=== PATIENT | male | born 1970 | race Caucasian/White ===

== ENCOUNTER 2023-06-17 15:08 | Outpatient (AMB) | payer OTHER, SELFPAY ==
--- NOTE | 2023-06-17 15:11 | MHC.OFFVIS ---
Intake Intake Visit Reasons: Kidney Stones Intake Note: New Patient Present for Establish care for Kidney stones Antibiotic Allergies: None Blood Thinners: None Pharmacy: Patient states that he has never had kidney stones prior of this. Patient states he has current back pain due to past fracture, but does have on and off pain unsure if pain is from Stone. He had went to ER for pain and was informed that they couldnt blast stone. Allergies bee sting Allergy (Mild, Uncoded 06/17/23 15:49) Unknown Medication List - Last Reconciled 06/17/23 by JOHN Capps bupropion HCl 150 mg PO QAM folic acid 1 mg PO DAILY hydroxyzine HCl 10 mg PO TID ypxfbkfr-zdzu-FJ-calcium-mins 9 mg iron-400 mcg (Therapeutic-M) 1 tab PO DAILY pyridoxine (vitamin B6) 50 mg PO DAILY thiamine HCl (vitamin B1) 100 mg PO DAILY HPI HPI Comments History of Present Illness Details Carley is a very pleasant 52-year-old male patient of Dr. Lopez. He has a past medical history of anxiety, depression, and alcoholism. He presents to the office today as a new patient for nephrolithiasis. In discussion with the patient today he reports having had an abdominal ultrasound due to his longstanding history of alcoholism and cirrhosis at which time he was noted to have a left-sided kidney stone. Imaging results reviewed with the patient today. Right kidney with no hydronephrosis, stone, and or masses noted. Left kidney with 10 mm nonobstructing stone in the lower pole. No hydronephrosis or mass seen. Patient reports to be having intermittent left-sided flank pain for many months now. However, he denies any bothersome urinary issues or concerns at this time. He denies urinary urgency, urinary frequency, incontinence, nocturia, hematuria, dysuria, foul smelling urine, changes to urinary stream, fever, and or chills. He is happy with his current voiding parameters. In office urinalysis results reviewed with the patient today. Discussed at length surveillance monitoring verses left-sided ESWL. Discussed potential causes of nephrolithiasis. Will obtain KUB for further assessment evaluation. Discussed at length risks and benefits of surveillance monitoring verses ESWL. All questions were answered. [facility] Medical History Hypoxia Shortness of breath Alcohol use Depression Anxiety Social History (Updated 06/17/23 @ 15:14 by SRUTHI Staples) Alcohol intake: current Alcohol intake frequency: a few times a week Alcohol type: hard liquor Review of Systems Const Reports as per HPI Eyes Reports no additional complaints ENT Reports no additional complaints Card Reports no additional complaints Resp Reports no additional complaints GI Reports as per HPI Reports as per HPI Musc Reports no additional complaints Neuro Reports no additional complaints Psych Reports as per HPI Abdi/Lymph Reports no additional complaints Aller/Immun Reports no additional complaints Physical Exam Const General: cooperative, healthy appearing, comfortable, no acute distress, well developed, alert and awake Orientation/consciousness: patient oriented x3 Limitations: no limitations HEENT Head: Yes normal to inspection, Yes normocephalic and Yes atraumatic Ears: hearing grossly normal bilaterally Eyes General: appearance normal, both eyes and all related structures Neck Neck: Yes normal visual inspection and Yes trachea midline Chest Chest palpation & inspection: normal inspection of the chest Resp Effort & Inspection: normal respiratory effort and able to speak in complete sentences Cardio Rate: regular rate GI Inspection: Yes normal to inspection General: Yes no CVA tenderness Back/Spine/Pelvis Back: no CVA tenderness Skin General skin exam: no rashes or lesions noted Neuro General: patient oriented x3 Extrem General: Yes normal to inspection Psych Appearance: grossly normal and well kempt Mental Status: mental status grossly normal Speech and movement: Normal speech and movement present and Clear speech present Affect: normal affect Attitude: cooperative Thought process: Normal thought process present Thought content: Normal thought content present Insight: Fair insight present (Psych) Judgement: Fair judgement present (Psych) Results AMB Urinalysis, Automated UA Leukoctes 0 Bren/uL Last Edit by SRUTHI Staples on 06/17/23 15:25 UA Nitrite Negative Last Edit by SRUTHI Staples on 06/17/23 15:25 UA Urobilinogen 0.2 mg/dL Last Edit by SRUTHI Staples on 06/17/23 15:25 UA Protein 15 mg/dL Last Edit by SRUTHI Staples on 06/17/23 15:25 UA pH 7.0 Last Edit by SRUTHI Staplse on 06/17/23 15:25 UA Blood 0 Eren/uL Last Edit by Adela Horowitz, RMA on 06/17/23 15:25 UA Specific [place] 1.010 Last Edit by Adela Horowitz, RMA on 06/17/23 15:25 UA Ketone Negative Last Edit by Adeladanielle Horowitz, RMA on 06/17/23 15:25 UA Bilirubin 0 mg/dL Last Edit by Adela Horowitz, RMA on 06/17/23 15:25 UA Glucose 0 mg/dL Last Edit by Adela Horowitz, RMA on 06/17/23 15:25 Results Reviewed Results Reviewed: Laboratory Last Values Urine pH (Auto) 7.0 06/17/23 15:15 Specific [place] (Auto) 1.010 06/17/23 15:15 Urine Protein (Auto) 15 mg/dL 06/17/23 15:15 Glucose (UA)(Auto) 0 mg/dL 06/17/23 15:15 Urine Ketones (Auto) Negative 06/17/23 15:15 Urine Blood (Auto) 0 Eren/uL 06/17/23 15:15 Urine Nitrite (Auto) Negative 06/17/23 15:15 Urine Bilirubin (Auto) 0 mg/dL 06/17/23 15:15 Urine Urobilinogen (Auto) 0.2 mg/dL 06/17/23 15:15 Leukocyte Esterase (Auto) 0 Bren/uL 06/17/23 15:15 Assessment & Plan Assessment & Plan (1) Nephrolithiasis: Code(s): N20.0 - Calculus of kidney (2) Flank pain: Code(s): R10.9 - Unspecified abdominal pain Plan: Plan Extracorporeal Shock Wave Lithotripsy We discussed the nature of the decision and reasonable alternatives for performing the above surgery. Interventions include chemical dissolution, ESWL, ureteroscopy with laser lithotripsy and stent placement, PCNL. ? Options such as medical therapy were discussed. The relative uncertainties and benefits related to each alternate procedure were adequately discussed. General surgical risks including, but not limited to, pain, bleeding, infection, myocardial infarction, pulmonary embolus, deep vein thrombosis and cerebrovascular accident which may result in further hospitalization were discussed.? Full disclosure of the procedure as well as all major risks, benefits and complications were discussed including but not limited to risks of bleeding, injury to the kidney with hematoma or mack-hematoma, failure to fragments stone, potential for ureteric obstruction from stone passage and need for secondary procedures.? There is a small long-term risk of hypertension and a question bonnie of diabetes.? Success rate of fragmentation and passage is approximately 70- 75%.? This is compared to the risks and benefits for ureteroscopy which has a higher success rate but is a more invasive procedure. The success rate of the procedure was discussed. Success of the procedure in the short-term does not necessarily guarantee that long-term success will be maintained. Suitable follow up will need to be maintained. The patient showed understanding of the discussion as well as the typical recovery time, and the outpatient nature of this procedure. Opportunity was given for questions. Repeat-back protocol used to confirm understanding. They wish to proceed with left ESWL Plan In office urinalysis results reviewed with the patient today; as noted above. Recent abdominal ultrasound results reviewed with the patient today; as noted above. Will obtain KUB for further assessment evaluation. Discussed surveillance monitoring verses left-sided ESWL. Educated, encouraged, and instructed on the importance of drinking plenty of water daily. Discussed at length potential causes of nephrolithiasis. Discussed risks and benefits of surveillance monitoring verses left-sided ESWL. Will schedule for left-sided ESWL as discussed. Follow-up per Dr. Joy's orders status post ESWL; or sooner with any issues, concerns, and or questions. Orders: Orders AMB Urinalysis Automated Today Z13.9 - Encounter for screening, unspecified XR KUB Today N20.0 - Calculus of kidney Patient Instructions: The patient had an opportunity to ask questions regarding the treatment plan. All questions were answered. Physical exam, labs, and imaging were discussed and reviewed in detail. As well as risks, benefits, and discussion of treatment choices. No major barriers to understanding were identified. The patient expressed understanding and agreement with the above treatment plan. The patient was made aware they should contact our office by phone for worsening of their current condition, the appearance of new symptoms, or with any questions or concerns. Compliance is encouraged with any medications and follow up testing that is ordered. It is a privilege to be allowed the opportunity to participate in? your urological care.? Again, if you have any questions or concerns If you have any questions or concerns please do not hesitate to contact me. The office is [phone]. This note is constructed using voice recognition software. While every effort has been made to ensure accuracy gas engine operator errors may have been included. Yours sincerely, REJI Capps-TANNER Coding Level of Care Code New Pt Level 4 (14662) Diagnoses Nephrolithiasis N20.0 Flank pain R10.9
== END 2023-06-17 15:48 | disposition home or self-care (01) ==
PROVIDERS: Visit Provider Nurse Practitioner Family
DX: N20.0 Calculus of kidney (principal); R10.9 Unspecified abdominal pain; Z13.9 Encounter for screening, unspecified
CPT/HCPCS: 99204

== ENCOUNTER → 2023-06-17 15:08 | Outpatient (BNVA) | payer OTHER, SELFPAY | PROVIDERS: Visit Provider Nurse Practitioner Family | DX: N20.0 Calculus of kidney (principal); F10.20 Alcohol dependence, uncomplicated | CPT/HCPCS: 81003 ==

== ENCOUNTER 2023-06-29 09:39 | Day surgery (SDC) | payer OTHER, SELFPAY ==
--- NOTE | 2023-06-28 14:14 | HO.ANESPROP2 ---
Documented by User: Nicole Reynolds NP 06/28/23 14:15 HPI - Anesthesia Eval Consult details Narrative: 52yo M for Left ESWL PMFSH Active Problems Active Problems: All Active Problems (Updated 06/17/23 @ 15:53 by Maya Tenorio [facility]) Flank pain (Acute) Nephrolithiasis (Acute) Past Medical History Medical History Nosebleed Liver cirrhosis History of pneumonia History of fractured vertebra Hypoxia Shortness of breath Alcohol use Depression Anxiety Surgical History Surgical History No pertinent past surgical history Social History Social History Alcohol intake: current Alcohol intake frequency: a few times a week Alcohol type: hard liquor Patient Tobacco Use Status: Never used Tobacco Meds Allergies Allergy/AdvReac Type Severity Reaction Status Date / Time bee sting Allergy Mild Unknown Uncoded 06/29/23 10:09 Home Medications Medication Instructions Recorded Confirmed Last Taken Type bupropion HCl 150 mg 24 hr tablet, 150 mg PO QAM 06/17/23 06/29/23 Unknown History extended release folic acid 1 mg tablet 1 mg PO DAILY 06/17/23 06/29/23 Unknown History hydroxyzine HCl 10 mg tablet 10 mg PO TID 06/17/23 06/29/23 Unknown History multivitamin-iron 9 mg-folic acid 1 tab PO DAILY 06/17/23 06/29/23 Unknown History 400 mcg-calcium and minerals tablet (Therapeutic-M) pyridoxine (vitamin B6) 50 mg 50 mg PO DAILY 06/17/23 06/29/23 Unknown History tablet thiamine HCl (vitamin B1) 100 mg 100 mg PO DAILY 06/17/23 06/29/23 Unknown History tablet Exam Exam Date and Time: June 28, 2023 141 Assessment and Plan Assessment Anesthesia Assessment: Chart Reviewed Documented by User: Charmaine Dickerson MD 06/29/23 11:16 [facility] Past Medical History Medical History Nosebleed Liver cirrhosis History of pneumonia History of fractured vertebra Hypoxia Shortness of breath Alcohol use Depression Anxiety Surgical History Surgical History No pertinent past surgical history History of Problems with Anesthesia: No Social History Social History Alcohol intake: current Alcohol intake frequency: a few times a week Alcohol type: hard liquor Patient Tobacco Use Status: Never used Tobacco Meds Allergies Allergy/AdvReac Type Severity Reaction Status Date / Time bee sting Allergy Mild Unknown Uncoded 06/29/23 10:09 Home Medications Medication Instructions Recorded Confirmed Last Taken Type bupropion HCl 150 mg 24 hr tablet, 150 mg PO QAM 06/17/23 06/29/23 Unknown History extended release folic acid 1 mg tablet 1 mg PO DAILY 06/17/23 06/29/23 Unknown History hydroxyzine HCl 10 mg tablet 10 mg PO TID 06/17/23 06/29/23 Unknown History multivitamin-iron 9 mg-folic acid 1 tab PO DAILY 06/17/23 06/29/23 Unknown History 400 mcg-calcium and minerals tablet (Therapeutic-M) pyridoxine (vitamin B6) 50 mg 50 mg PO DAILY 06/17/23 06/29/23 Unknown History tablet thiamine HCl (vitamin B1) 100 mg 100 mg PO DAILY 06/17/23 06/29/23 Unknown History tablet Exam Airway Mallampati Class: II TM Dist: >3cm Neck ROM: Full Loose/Missing/Broken Teeth: No Heart: RRR Lungs: CTA Assessment and Plan Assessment Anesthesia Assessment: Anesthesia Plan Discussed Final Anesthetic Review History of Problems with Anesthesia: No NPO: Yes ASA Class: III Final Preanesthetic Review: Meds/Allgs Chart Reviewed, Consent Obtained/Reviewed and Anes Risks/Benef Reviewed Patient Risk: Intermediate Procedure Risk: Low Anesthetic Plan Anesthetic Plan: MAC: Disposition: Standard PACU
--- NOTE | ~2023-06-29 | XR_ITS ---
EXAMINATION: XR ABDOMEN KUB CLINICAL INDICATION: Left kidney stone evaluation COMPARISON: None available. TECHNIQUE: AP view of the abdomen. FINDINGS: There is an oval calcification likely a nephrolith, overlying the lower left kidney, at approximately 7 mm transverse. No prior studies available for review. Kidneys otherwise unremarkable although a fair amount of stool and gas overlies the soft tissues of the kidneys and bladder. Bony structures intact. XR/XR KUB IMPRESSION: Left nephrolith.
[2023-06-29 10:10] VITALS: BMI 26.6
[2023-06-29 10:27] VITALS: BP 143/101; PULSE 67; RESP 15; TEMP 36.5; O2SAT 95
[2023-06-29] MEDS: Lactated Ringers 1,000 ML 999 ML IV (10:37)
[2023-06-29 10:39] LABS: INTERNATIONAL NORM RATIO 1.1 (0.9-1.1); Prothrombin Time 13.1 SEC (11.1-13.3)
--- NOTE | 2023-06-29 11:03 | MHC.SHP ---
Pre-Procedural Eval Section A Date of Service: 06/29/23 The patient is an INPATIENT: No Changes since office visit: No Cold of Flu in the past 2 weeks, No New Medical Problems, No Changes in Medication and No Patient answered all questions The History & Physical has been completed within 30 days and I have reviewed it.: Yes Section B Chief Complaint: Calculus of kidney Details of Present Illness: left renal stone Allergies: Allergies Allergy/AdvReac Type Severity Reaction Status Date / Time bee sting Allergy Mild Unknown Uncoded 06/29/23 10:09 Review of Systems Sugical H&P ROS: Negative: Constitution, Cardiovascular, Respiratory, Neurological, Psychiatric, Hem-Onc, Allergic/Immunologic, Gastrointestinal, Genitourinary, Musculoskeletal, Integumentary, Endocrine and Eyes/Ears/Nose/Throat Exam Surgical H&P Exam: Normal: HEENT, Normal: Heart, Normal: Lungs, Normal: Extremities, Normal: Abdomen, Normal: Skin and Normal: Neurological Plan Diagnosis/Plan: Unchanged (left esw) I have reviewed the history and physical and performed a pertinent physical examination on my patient. No changes have occurred unless specified. Time Spent With Patient Time: Total time managing care of this patient today ____ minutes.
--- NOTE | 2023-06-29 11:13 | W.PM.OPN ---
Operative Note Operative Note Date of Service: 06/29/23 Narrative: PreOperative Diagnosis: left Renal stones Post Operative Diagnosis: left Renal stones Procedure: left ESWL Surgeon: Dr Ruperto Joy Anesthesia: mac/sedation Indications for procedure: The patient understands ESWL may be a staged procedure and subsequent intervention may be required based on imaging after ESWL. Quoted stone clearance rates for a solitary procedure are in the 70-80% range based primarily on stone location. They also understand there is a risk of bleeding to the kidney, infection, damage to adjacent organs, and stone migration following the procedure. - Imaging left 10mm stone on CT Procedure: After informed consent was verified the patient was brought to the operating room and placed in a supine position. Anesthesia was performed per protocol. Safety pause time-out was performed. Imaging was displayed in the room and laterality confirmed. ESWL was performed. The 1st 500 shocks were performed at 60 hertz. These were performed with increasing power. Once maximum power was reached the rate was increased to 180 hertz. A total of 2500 shocks were given. Targeted imaging with ultrasound/fluoroscopy showed stone smudging suggestive of disintegration. The patient tolerated the procedure well and was transferred to the recovery area upon completion. Post procedure imaging will be organized. There was no evidence for flank discoloration.
[2023-06-29 11:50] VITALS: BP 121/88; PULSE 88; RESP 18; TEMP 37; O2SAT 95
[2023-06-29 12:05] VITALS: BP 139/102; PULSE 95; RESP 18; O2SAT 93
[2023-06-29 12:20] VITALS: BP 150/90; PULSE 89; RESP 16; TEMP 37; O2SAT 93
== END 2023-06-29 12:43 | disposition home or self-care (01) ==
PROVIDERS: Anesthesiology; PCP Nurse Practitioner Family; Visit Provider Urology
PROC: (CPT 50590; principal; 2023-06-29 11:00)
DX: N20.0 Calculus of kidney (principal); R10.9 Unspecified abdominal pain; K74.60 Unspecified cirrhosis of liver; F10.90 Alcohol use, unspecified, uncomplicated; R09.02 Hypoxemia; R06.02 Shortness of breath; F32.A Depression, unspecified; F41.9 Anxiety disorder, unspecified; Z87.81 Personal history of (healed) traumatic fracture; Z79.899 Other long term (current) drug therapy
CPT/HCPCS: 50590; 36415; 74018; 85610; J0131; J1940; J2250; J2704; J3010

== ENCOUNTER → 2023-06-29 09:39 | Outpatient (BNV) | payer OTHER, SELFPAY | PROVIDERS: Visit Provider Urology | DX: N20.0 Calculus of kidney (principal) | CPT/HCPCS: 50590 ==

== ENCOUNTER 2023-09-07 14:25 | Outpatient (REF) | payer OTHER, SELFPAY ==
--- NOTE | ~2023-09-07 | US_ITS ---
EXAMINATION: US RETROPERITONEAL LIMITED (RENAL ONLY) CLINICAL INFORMATION: Calculus of kidney. COMPARISON: X-ray abdomen KUB 06/29/2023. TECHNIQUE: Real-time imaging of the kidneys. FINDINGS: RIGHT KIDNEY: 11.6 x 7.1 x 6.7 cm (SAG x AP x TRV). The kidney is normal in size, contour, and echogenicity. Renal cortical thickness is normal. No calculi or focal parenchymal lesions. No hydronephrosis. LEFT KIDNEY: 10.8 x 7.0 x 5.3 cm (SAG x AP x TRV). The kidney is normal in size, contour, and echogenicity. Renal cortical thickness is normal. No focal parenchymal lesions or hydronephrosis. 1.1 x 0.8 x 1.5 cm nonobstructing calculus is seen in the lower pole. US/US renal BI IMPRESSION: 1. Normal appearance of the right kidney. 2. 1.5 cm nonobstructing calculus in the lower pole of the left kidney.
== END 2023-09-07 14:26 | disposition home or self-care (01) ==
LOC: HO.US 14:25
PROVIDERS: PCP Nurse Practitioner Family; Visit Provider Nurse Practitioner Family
DX: N20.0 Calculus of kidney (principal)
CPT/HCPCS: 76775

== ENCOUNTER → 2023-09-26 13:48 | Outpatient (BNVA) | payer OTHER, SELFPAY | PROVIDERS: PCP Nurse Practitioner Family; Visit Provider Nurse Practitioner Family ==

== ENCOUNTER 2023-09-28 14:11 | Outpatient (AMB) | payer OTHER, SELFPAY ==
--- NOTE | 2023-09-28 14:07 | A.OFFVIS_ITS ---
Intake Intake Visit Reasons: Follow up Ultrasound(set) Intake Note: Patient presents today for a telehealth follow up medications: Tamsulosin, Pyridium, Vit. B6, Blood Thinners: None Comparative Sociology Professor Required: No Allergies bee sting Allergy (Mild, Uncoded 09/28/23 15:19) Unknown Medication List - Last Reconciled 09/28/23 by JOHN Capps bupropion HCl 150 mg PO QAM folic acid 1 mg PO DAILY hydroxyzine HCl 10 mg PO TID nqgpgxkh-elox-OY-calcium-mins 9 mg iron-400 mcg (Therapeutic-M) 1 tab PO DAILY phenazopyridine (Pyridium) 100 mg PO TID PRN 4 days pyridoxine (vitamin B6) 50 mg PO DAILY tamsulosin 0.4 mg PO BEDTIME 14 days thiamine HCl (vitamin B1) 100 mg PO DAILY HPI HPI Comments History of Present Illness Details Carley is a very pleasant 53-year-old male patient of Dr. Lopez. He has a past medical history of anxiety, depression, and alcoholism. He is being followed up on today via telehealth for his history of nephrolithiasis. Of note, patient previously underwent left-sided ESWL with Dr. Joy on 06/29/2023. Recent renal imaging results reviewed with the patient today. Right kidney with no calculi, lesions, and or hydronephrosis. Left kidney with 1.1 by 0.8 x 1.5 cm nonobstructing calculus seen in the lower pole. In discussion with the patient today he reports ongoing intermittent left-sided flank pain as he had been experiencing previously. Discussed at length repeat ESWL versus ureteroscopy. He otherwise denies any bothersome urinary issues or concerns. He denies urinary urgency, urinary frequency, incontinence, nocturia, hematuria, dysuria, foul smelling urine, changes to urinary stream, fever, and or chills. He is happy with his current voiding parameters. Discussed at length surveillance monitoring verses repeat left-sided ESWL versus ureteroscopy. Risks and benefits of these interventions were discussed at length. All questions were answered. Discussed potential causes of nephrolithiasis. He otherwise offers no other issues or concerns at this time. [facility] Medical History Nosebleed Liver cirrhosis History of pneumonia History of fractured vertebra Hypoxia Shortness of breath Alcohol use Depression Anxiety Surgical History No pertinent past surgical history Social History Alcohol intake: current Alcohol intake frequency: a few times a week Alcohol type: hard liquor Patient Tobacco Use Status: Never used Tobacco Review of Systems Const Reports as per HPI Eyes Reports no additional complaints ENT Reports no additional complaints Card Reports no additional complaints Resp Reports no additional complaints GI Reports as per HPI Reports as per HPI Musc Reports no additional complaints Neuro Reports no additional complaints Psych Reports as per HPI Abdi/Lymph Reports no additional complaints Aller/Immun Reports no additional complaints Physical Exam Const General: cooperative Orientation/consciousness: oriented to person Resp Effort & Inspection: able to speak in complete sentences Neuro General: oriented to person Psych Speech and movement: Clear speech present Attitude: cooperative Thought process: Normal thought process present Thought content: Normal thought content present Insight: Fair insight present (Psych) Judgement: Fair judgement present (Psych) Results Reviewed Results Reviewed: Date of Service: 09/07/23 EXAMINATION: US RETROPERITONEAL LIMITED (RENAL ONLY) FINDINGS: RIGHT KIDNEY: 11.6 x 7.1 x 6.7 cm (SAG x AP x TRV). The kidney is normal in size, contour, and echogenicity. Renal cortical thickness is normal. No calculi or focal parenchymal lesions. No hydronephrosis. LEFT KIDNEY: 10.8 x 7.0 x 5.3 cm (SAG x AP x TRV). The kidney is normal in size, contour, and echogenicity. Renal cortical thickness is normal. No focal parenchymal lesions or hydronephrosis. 1.1 x 0.8 x 1.5 cm nonobstructing calculus is seen in the lower pole. IMPRESSION: 1. Normal appearance of the right kidney. 2. 1.5 cm nonobstructing calculus in the lower pole of the left kidney. Assessment & Plan Assessment & Plan (1) Nephrolithiasis: Code(s): N20.0 - Calculus of kidney (2) Flank pain: Code(s): R10.9 - Unspecified abdominal pain Plan: Plan Extracorporeal Shock Wave Lithotripsy We discussed the nature of the decision and reasonable alternatives for perf orming the above surgery. Interventions include chemical dissolution, ESWL, ureteroscopy with laser lithotripsy and stent placement, PCNL. ? Options such as medical therapy were discussed. The relative uncertainties and benefits related to each alternate procedure were adequately discussed. General surgical risks including, but not limited to, pain, bleeding, infection, myocardial infarction, pulmonary embolus, deep vein thrombosis and cerebrovascular accident which may result in further hospitalization were discussed.? Full disclosure of the procedure as well as all major risks, benefits and complications were discussed including but not limited to risks of bleeding, injury to the kidney with hematoma or mack-hematoma, failure to fragments stone, potential for ureteric obstruction from stone passage and need for secondary procedures.? There is a small long-term risk of hypertension and a question bonnie of diabetes.? Success rate of fragmentation and passage is approximately 70- 75%.? This is compared to the risks and benefits for ureteroscopy which has a higher success rate but is a more invasive procedure. The success rate of the procedure was discussed. Success of the procedure in the short-term does not necessarily guarantee that long-term success will be maintained. Suitable follow up will need to be maintained. The patient showed understanding of the discussion as well as the typical recovery time, and the outpatient nature of this procedure. Opportunity was given for questions. Repeat-back protocol used to confirm understanding. They wish to proceed with left ESWL Plan Recent renal ultrasound results reviewed with the patient today; as noted above. Discussed surveillance monitoring verses repeat left-sided ESWL verses ureteroscopy; risks and benefits of these interventions were discussed at length. Educated, encouraged, and instructed on the importance of drinking plenty of water daily. Discussed at length potential causes of nephrolithiasis. Will schedule for left-sided ESWL as discussed. Follow-up per Dr. Joy's orders status post ESWL; or sooner with any issues, concerns, and or questions. Telehealth Telehealth Location of provider rendering services: practice address Location of patient: address on file Patient Identification confirmed using: Name, : Yes Telehealth method: voice only Patient verbally consented to treatment: Yes Patient verbally consented to billing insurance company: Yes Patient informed of any privacy concerns related to visit: Yes Minutes spent on Phone/Video with Pt.: 25 Coding Level of Care Code Tele Est Pt Level 4 (13337) Diagnoses Nephrolithiasis N20.0 Flank pain R10.9
== END 2023-09-28 15:25 | disposition home or self-care (01) ==
LOC: HO.HUSH 14:11
PROVIDERS: PCP Nurse Practitioner Family; Visit Provider Nurse Practitioner Family
DX: N20.0 Calculus of kidney (principal); R10.9 Unspecified abdominal pain
CPT/HCPCS: 99214

== ENCOUNTER → 2023-09-28 14:11 | Outpatient (BNVA) | payer OTHER, SELFPAY | PROVIDERS: PCP Nurse Practitioner Family; Visit Provider Nurse Practitioner Family ==

== ENCOUNTER 2023-11-03 12:58 | Outpatient (AMB) | payer OTHER, SELFPAY ==
--- NOTE | 2023-11-03 13:00 | A.OFFVIS_ITS ---
Intake Intake Visit Reasons: H&P ESWL Intake Note: Patient presents today for a telehealth follow up medications: Tamsulosin, Pyridium, Vit. 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 Video attempted. The patient had last evaluation with nurse practitioner Maya Tenorio on 09/28/2023. He is scheduled for left ESWL on 11/16/2023. The patient had a prior ESWL of the same kidney stone on 06/29/[address] Joy. He states he did not pass any fragments. I have reviewed imaging KUB-06/29/2023 (7 mm left lower pole stone) and renal ultrasound 09/07/2023 (1.5 cm left lower pole stone). Discussed risks to include but not limited to, blood in the urine, bruising to the skin, kidney hematoma, possible need for another procedure if a stone fragment obstructs the ureter while passing, possible need to repeat procedure if stone is not completely fragmented. The patient agrees to proceed with the procedure. 30 minutes spent in review of records pe rtaining to this visit, discussion with the patient and documentation of this visit. Review of chart: 09/28/23--Carley is a very pleasant 53-y ear-old male patient of Dr. Lopez. He has a past medical history of anxiety, depression, and alcoholism. He is being followed up on today via telehealth for his history of nephrolithiasis. Of note, patient previously underwent left-sided ESWL with Dr. Joy on 06/29/2023. Recent renal imaging results reviewed with the patient today. Right kidney with no calculi, lesions, and or hydronephrosis. Left kidney with 1.1 by 0.8 x 1.5 cm nonobstructing calculus seen in the lower pole. In discussion with the patient today he reports ongoing intermittent left-sided flank pain as he had been experiencing previously. Discussed at length repeat ESWL versus ureteroscopy. He otherwise denies any bothersome urinary issues or concerns. He denies urinary urgency, urinary frequency, incontinence, nocturia, hematuria, dysuria, foul smelling urine, changes to urinary stream, fever, and or chills. He is happy with his current voiding parameters. Discussed at length surveillance monitoring verses repeat left-sided ESWL versus ureteroscopy. Risks and benefits of these interventions were discussed at length. All questions were answered. Discussed potential causes of nephrolithiasis. He otherwise offers no other issues or concerns at this time. 11/03/2023--PLAN: Left extracorporeal shockwave lithotripsy 11/16/2023 [facility] Medical History Nosebleed Liver cirrhosis History of pneumonia History of fractured vertebra Hypoxia Shortness of breath Alcohol use Depression Anxiety Surgical History Hx of lithotripsy Social History Alcohol intake: current Alcohol intake frequency: a few times a week Alcohol type: hard liquor Patient Tobacco Use Status: Never used Tobacco Review of Systems Const All systems reviewed & are unremarkable except as noted in HPI and below Reports no additional complaints Eyes Reports no additional complaints ENT Reports no additional complaints Card Denies dyspnea Resp Denies cough and Denies dyspnea GI Reports no additional complaints Musc Reports no additional complaints Skin/Breast Denies rash and Denies unusual bruising Neuro Reports no additional complaints Psych Reports no additional complaints Endo Reports no additional complaints Abdi/Lymph Reports no additional complaints Aller/Immun Reports no additional complaints Results Reviewed Results Reviewed: Date of Service: 09/07/23 EXAMINATION: US RETROPERITONEAL LIMITED (RENAL ONLY) CLINICAL INFORMATION: Calculus of kidney. COMPARISON: X-ray abdomen KUB 06/29/2023. TECHNIQUE: Real-time imaging of the kidneys. FINDINGS: RIGHT KIDNEY: 11.6 x 7.1 x 6.7 cm (SAG x AP x TRV). The kidney is normal in size, contour, and echogenicity. Renal cortical thickness is normal. No calculi or focal parenchymal lesions. No hydronephrosis. LEFT KIDNEY: 10.8 x 7.0 x 5.3 cm (SAG x AP x TRV). The kidney is normal in size, contour, and echogenicity. Renal cortical thickness is normal. No focal parenchymal lesions or hydronephrosis. 1.1 x 0.8 x 1.5 cm nonobstructing calculus is seen in the lower pole. IMPRESSION: 1. Normal appearance of the right kidney. 2. 1.5 cm nonobstructing calculus in the lower pole of the left kidney. Date of Service: 06/29/23 EXAMINATION: XR ABDOMEN KUB CLINICAL INDICATION: Left kidney stone evaluation COMPARISON: None available. TECHNIQUE: AP view of the abdomen. FINDINGS: There is an oval calcification likely a nephrolith, overlying the lower left kidney, at approximately 7 mm transverse. No prior studies available for review. Kidneys otherwise unremarkable although a fair amount of stool and gas overlies the soft tissues of the kidneys and bladder. Bony structures intact. IMPRESSION: Left nephrolith. Assessment & Plan Assessment & Plan (1) Nephrolithiasis: Code(s): N20.0 - Calculus of kidney Plan Left extracorporeal shockwave lithotripsy 11/16/2023 Patient Instructions: The patient had an opportunity to ask questions regarding treatment plan. All questions were answered. Imaging results were discussed and reviewed in detail. No major barriers to understanding were identified. The patient expressed understanding and agreement with the above treatment plan. The patient is aware they should contact our office by phone for worsening of their current condition or the appearance of new symptoms. Compliance is encouraged with any medications and followup testing that is ordered. It is a privilege to be allowed the opportunity to participate in the urologic care of your patient. If you have any questions or concerns regarding treatment for the above conditions please do not hesitate to contact me. The office telephone contact is [phone]. This note is constructed in part using voice recognition software. While every effort has been made to ensure accuracy semi driver errors may have been included. Yours sincerely, Wellington Ross MD Telehealth Telehealth Location of provider rendering services: practice address Location of patient: address on file Patient Identification confirmed using: Name, : Yes Telehealth method: voice only Patient verbally consented to treatment: Yes Patient verbally consented to billing insurance company: Yes Patient informed of any privacy concerns related to visit: Yes Minutes spent on Phone/Video with Pt.: 15 Coding Level of Care Code Tele Est Pt Level 4 (86413) Diagnoses Nephrolithiasis N20.0
== END 2023-11-03 13:24 | disposition home or self-care (01) ==
LOC: HO.HUSH 12:58
PROVIDERS: PCP Nurse Practitioner Family; Visit Provider Urology
DX: N20.0 Calculus of kidney (principal)
CPT/HCPCS: 99214

== ENCOUNTER → 2023-11-03 12:58 | Outpatient (BNVA) | payer OTHER, SELFPAY | PROVIDERS: PCP Nurse Practitioner Family; Visit Provider Urology ==

== ENCOUNTER → 2023-11-16 06:37 | Day surgery (SDC) | payer OTHER, SELFPAY ==
--- NOTE | 2023-11-15 09:13 | HO.ANESPROP2 ---
HPI - Anesthesia Eval Consult details Narrative: Cx'd DOS d/t active ETOH withdrawal 53yo M for Left Lithotripsy ESW s/p same 06/2023 with MAC Hx cirrhosis, no labs available. Will obtain DOS. PMFSH Active Problems Active Problems: All Active Problems (Updated 06/29/23 @ 10:39 by Makeda Torres, RN) Flank pain (Acute) Nephrolithiasis (Acute) Past Medical History Medical History (Updated 11/16/23 @ 07:24 by Paloma Denise) Hypertension Nosebleed Liver cirrhosis History of pneumonia History of fractured vertebra Hypoxia Shortness of breath Alcohol use Depression Anxiety Surgical History Surgical History (Updated 11/16/23 @ 07:23 by Paloma Denise) H/O colonoscopy Hx of lithotripsy History of Problems with Anesthesia: No Social History Social History Alcohol intake: current Alcohol intake frequency: 3 or more drinks per day Alcohol type: hard liquor Patient Tobacco Use Status: Never used Tobacco Meds Allergies Allergy/AdvReac Type Severity Reaction Status Date / Time bee sting Allergy Severe Anaphylaxis Uncoded 11/16/23 07:10 Home Medications ?Medication ?Instructions ?Recorded ?Confirmed ?Last Taken ?Type bupropion HCl 150 mg 24 hr tablet, 150 mg PO QAM 06/17/23 11/16/23 Unknown History extended release folic acid 1 mg tablet 1 mg PO DAILY 06/17/23 11/16/23 11/15/23 History hydroxyzine HCl 10 mg tablet 10 mg PO TID 06/17/23 11/16/23 Unknown History multivitamin-iron 9 mg-folic acid 1 tab PO DAILY 06/17/23 11/16/23 11/15/23 History 400 mcg-calcium and minerals tablet (Therapeutic-M) pyridoxine (vitamin B6) 50 mg 50 mg PO DAILY 06/17/23 11/16/23 Unknown History tablet thiamine HCl (vitamin B1) 100 mg 100 mg PO DAILY 06/17/23 11/16/23 Unknown History tablet lisinopril 5 mg tablet 5 mg PO DAILY 11/16/23 11/16/23 11/15/23 History Assessment and Plan Assessment Anesthesia Assessment: Chart Reviewed Final Anesthetic Review History of Problems with Anesthesia: No
--- NOTE | ~2023-11-16 | XR_ITS ---
EXAMINATION: XR ABDOMEN KUB CLINICAL INDICATION: Left kidney stone. COMPARISON: Renal ultrasound dated 09/07/2023; KUB dated 06/29/2023. TECHNIQUE: 2 AP views of the abdomen and pelvis are submitted. FINDINGS: The bowel gas pattern is normal, with no evidence of ileus or obstruction. A 1.5 cm left renal lower pole calculus is again seen. This has increased in the interim. The bones are unremarkable. XR/XR KUB IMPRESSION: An increased, now 1.5 cm left renal lower pole calculus is seen. No further urinary calculus is appreciated.
--- NOTE | 2023-11-16 07:10 | PC.NURSE ---
Addendum entered by Paloma Denise 11/16/23 09:07: Preop VS- Patient tachycardic at 111 with BP 150/99. Patient very anxious and actively going through alcohol withdrawals. Anesthesia aware. Original Note: Patient arrived to [facility] for preop. Alert and oriented x3, able to answer all questions appropriately. This nurse observed patient to be very shaky with involuntary tremors. Patient stated I am very anxious today . Patient in bed, VS WNL. Patient states I also drink alcohol regularly and have not since yesterday at noon, this is also why I am shaking . Patient questioned further regarding this- He drinks 6 hard drinks per day and 6 shots per day; last drink at dinner time last night; patient used to take Naltrexone daily but self stopped both the medication and alcohol about 6 months ago; Recently started drinking again. Dr. Dickerson and Dr. Diaz made aware. Dr. Diaz at bedside. Case cancelled due to alcohol withdrawals. Dr. Diaz also aware patients platelets [address] Diaz explained to patient that he needs to be sent to Emergency Department from [facility] due to alcohol withdrawals. Patient declined, states I am going to go home and sign up for detox . Patient sent home with all belongings, ride called.
[2023-11-16 07:26] LABS: Hematocrit 46.3 % (42.0-52.0); Hemoglobin 16.8 g/dl (14.0-18.0); Mean Corpuscular HGB Conc 36.3 g/dl (31.0-36.0); Mean Corpuscular Hemoglobin 33.7 pg (27.0-33.0); Mean Corpuscular Volume 92.8 fL (80.0-98.0); Red Blood Count 4.99 X10*6/uL (4.60-5.80); Red Cell Distribution Width 12.2 % (11.0-16.0); White Blood Count 6.1 X10*3/uL (4.8-10.8)
[2023-11-16 07:27] LABS: Mean Platelet Volume 9.9 fL (9.4-12.4); Platelet Count 80 X10*3/uL (160-400)
[2023-11-16 07:31] VITALS: BP 150/99; PULSE 111; RESP 16; TEMP 36.8; O2SAT 96; BMI 28.9
[2023-11-16 07:39] LABS: Alanine Aminotransferase 95 U/L (0-40); Alkaline Phosphatase 130 U/L (39-117); Anion Gap 17 (12-20); Aspartate Amino Transferase 220 U/L (5-37); Bilirubin Total 1.4 mg/dL (0.0-1.0); Blood Urea Nitrogen 6 mg/dL (9-16); Carbon Dioxide 26 mmol/L (22-29); Chloride 104 mmol/L (96-108); Creatinine Clr Calc Pharmacy 123.8; Estimated Glomerular Filt Rate > 60; Glucose Fasting 133 mg/dL (60-99); INTERNATIONAL NORM RATIO 1.1 (0.9-1.1); Potassium 3.6 mmol/L (3.3-5.1); Prothrombin Time 13.8 SEC (11.1-13.3); Sodium 143 mmol/L (135-145); Total Protein 8.4 g/dL (6.5-8.0)
--- NOTE | 2023-11-16 08:11 | HO.ANESEVENT ---
Anesthesia Event Note Date of Service: 11/16/23 Event Note: Patient 53 y/o male presented for ESWL left side for kidney stone. According to the patient he is a drinker of alcohol of high quantity on a daily basis. Her stated that he had stopped for a brief time but started again recently. He had only 2-3 drinks yesterday which is a small amount to his normal daily intake. He is trembling and looks to be in DT's. Patient even stated he thinks he is having DT's because he knows himself and is not the first time this is happening. I had a long discussion with the patient about him needing to go to the ER to treat these tremors and there he can possibly speak to a social media analyst to get him help. He was firm that he wanted to go home and have a drink to fix his issue and that he would seek help on an outpatient basis. He ended up leaving and going home before any procedure was done. Thank you. Time Spent With Patient Time: Total time managing care of this patient today _30___ minutes.
== END ==
PROVIDERS: Nurse Practitioner; PCP Nurse Practitioner Family; Visit Provider Urology
DX: N20.0 Calculus of kidney (principal); Z53.8 Procedure and treatment not carried out for other reasons; F10.231 Alcohol dependence with withdrawal delirium
CPT/HCPCS: 36415; 74018; 80053; 85027; 85610; 92950

== ENCOUNTER 2024-01-06 14:37 | Outpatient (AMB) | payer OTHER, SELFPAY ==
--- NOTE | 2024-01-06 14:38 | A.OFFVIS_ITS ---
Intake Visit Reasons: H&P ESWL Intake Note: Patient presents today for a telehealth H&P ESWL Urology Medications: Vitamin B6 Blood Thinners: None Business Support Professional Required: No Accompanied by: Self / Same As Patient Allergies bee sting Allergy (Severe, Uncoded 01/09/24 16:06) Anaphylaxis Medication List - Last Reconciled 01/09/24 by JABARI CappsP- bupropion HCl XL 300 mg PO DAILY folic acid 1 mg PO DAILY hydroxyzine HCl 10 mg PO TID hbvidxiy-kbyh-UE-calcium-mins 9 mg iron-400 mcg (Therapeutic-M) 1 tab PO DAILY naltrexone mg PO pyridoxine (vitamin B6) 50 mg PO DAILY thiamine HCl (vitamin B1) 100 mg PO DAILY HPI Comments Details: Carley is a very pleasant 53-year-old male patient of Dr. Lopez. He has a past medical history of liver cirrhosis, anxiety, depression, and alcoholism. He is being followed up on today via telehealth for his history of nephrolithiasis. Of note, patient was to undergo left-sided ESWL with Dr. Rahul Yang last month however was noted to have symptoms of alcohol withdrawal by anesthesia at which time surgical procedure was canceled. In discussion with the patient today he reports having been admitted into a detox center shortly after his procedure was canceled. He reports he is approximately 6 weeks sober. Patient was also noted to have moderate thrombocytopenia however this appears to have since resolved. Hemoglobin: 12/06 16.8, 01/05 17.0 Hematocrit: 12/06 46.3, 01/05 49.3 Platelet count: 12/06 80, 01/05 161 He previously underwent left-sided ESWL with Dr. Joy on 06/29/2023. Most recent renal imaging results reviewed with the patient today. Right kidney with no calculi, lesions, and or hydronephrosis. Left kidney with 1.1 by 0.8 x 1.5 cm nonobstructing calculus seen in the lower pole. In discussion with the patient today he reports ongoing intermittent left-sided flank pain as he had been experiencing previously. Discussed at length repeat ESWL versus ureteroscopy. Discussed potential causes of nephrolithiasis. Discussed risks to include but not limited to, blood in the urine, bruising to the skin, kidney hematoma, possible need for another procedure if a stone fragment obstructs the ureter while passing, possible need to repeat procedure if stone is not completely fragmented. The patient agrees to proceed with the procedure. He otherwise denies any bothersome urinary issues or concerns. He denies urinary urgency, urinary frequency, incontinence, nocturia, hematuria, dysuria, foul smelling urine, changes to urinary stream, fever, and or chills. He is happy with his current voiding parameters. All questions were answered.He otherwise offers no other issues or concerns at this time. PFS Medical History Hypertension Nosebleed Liver cirrhosis History of pneumonia History of fractured vertebra Hypoxia Shortness of breath Alcohol use Depression Anxiety Surgical History H/O colonoscopy Hx of lithotripsy Social History Alcohol intake: current Alcohol intake frequency: 3 or more drinks per day Alcohol type: hard liquor Patient Tobacco Use Status: Never used Tobacco Review of Systems Const Reports as per HPI Eyes Reports no additional complaints ENT Reports no additional complaints Card Reports no additional complaints Resp Reports no additional complaints GI Reports as per HPI Reports as per HPI Musc Reports no additional complaints Neuro Reports no additional complaints Psych Reports as per HPI Abdi/Lymph Reports as per HPI Aller/Immun Reports no additional complaints Physical Exam Const General: cooperative, healthy appearing, comfortable, no acute distress, well developed, alert and awake Orientation/consciousness: patient oriented x3 Resp Effort & Inspection: normal respiratory effort and able to speak in complete sentences Neuro General: patient oriented x3 Psych Appearance: grossly normal and well kempt Mental Status: mental status grossly normal Speech and movement: Normal speech and movement present and Clear speech present Affect: normal affect Attitude: cooperative Thought process: Normal thought process present Thought content: Normal thought content present Insight: Fair insight present (Psych) Judgement: Fair judgement present (Psych) Telehealth Telehealth Telehealth Platform: [facility] Location of provider rendering services: practice address Location of patient: address on file Patient Identification confirmed using: Name, : Yes Telehealth method: video Patient verbally consented to treatment: Yes Patient verbally consented to billing insurance company: Yes Patient informed of any privacy concerns related to visit: Yes Minutes spent on Phone/Video with Pt.: 25 Assessment & Plan Assessment & Plan (1) Thrombocytopenia: Code(s): D69.6 - Thrombocytopenia, unspecified Category: Medical (2) Flank pain: Code(s): R10.9 - Unspecified abdominal pain Category: Medical (3) Nephrolithiasis: Code(s): N20.0 - Calculus of kidney Category: Medical Plan: Plan Extracorporeal Shock Wave Lithotripsy We discussed the nature of the decision and reasonable alternatives for performing the above surgery. Interventions include chemical dissolution, ESWL, ureteroscopy with laser lithotripsy and stent placement, PCNL. ? Options such as medical therapy were discussed. The relative uncertainties and benefits related to each alternate procedure were adequately discussed. General surgical risks including, but not limited to, pain, bleeding, infection, myocardial infarction, pulmonary embolus, deep vein thrombosis and cerebrovascular accident which may result in further hospitalization were discussed.? Full disclosure of the procedure as well as all major risks, benefits and complications were discussed including but not limited to risks of bleeding, injury to the kidney with hematoma or mack-hematoma, failure to fragments stone, potential for ureteric obstruction from stone passage and need for secondary procedures.? There is a small long-term risk of hypertension and a question bonnie of diabetes.? Success rate of fragmentation and passage is approximately 70- 75%.? This is compared to the risks and benefits for ureteroscopy which has a higher success rate but is a more invasive procedure. The success rate of the procedure was discussed. Success of the procedure in the short-term does not necessarily guarantee that long-term success will be maintained. Suitable follow up will need to be maintained. The patient showed understanding of the discussion as well as the typical recovery time, and the outpatient nature of this procedure. Opportunity was given for questions. Repeat-back protocol used to confirm understanding. They wish to proceed with Left ESWL Plan Discussed risks and benefits of surgical intervention versus surveillance monitoring; as noted above. Discussed at length thrombocytopenia; it appears this has since been resolved; will obtain BMP and CBC to be sure prior to procedure. Discussed at length potential causes of nephrolithiasis. Patient currently denies any bothersome urinary issues. Reports be happy with current voiding parameters. Encouragement provided regarding sobriety. Keep scheduled left-sided ESWL with Dr. Rahul Yang as planned. Follow-up postprocedure per doctor's orders; or sooner with any issues, concerns, and or questions. Orders: Orders Complete Blood Count Auto Diff 01/06/24 D69.6 - Thrombocytopenia, unspecified Basic Metabolic Panel 01/06/24 N20.0 - Calculus of kidney Patient Instructions: The patient had an opportunity to ask questions regarding the treatment plan. All questions were answered. Physical exam, labs, and imaging were discussed and reviewed in detail. As well as risks, benefits, and discussion of treatment choices. No major barriers to understanding were identified. The patient expressed understanding and agreement with the above treatment plan. The patient was made aware they should contact our office by phone for worsening of their current condition, the appearance of new symptoms, or with any questions or concerns. Compliance is encouraged with any medications and follow up testing that is ordered. It is a privilege to be allowed the opportunity to participate in? your urological care.? Again, if you have any questions or concerns If you have any questions or concerns please do not hesitate to contact me. The office is [phone]. This note is constructed using voice recognition software. While every effort has been made to ensure accuracy medical support assistant errors may have been included. Yours sincerely, JOHN Capps Coding Level of Care Code Tele Est Pt Level 4 (35215) Diagnoses Thrombocytopenia D69.6 Flank pain R10.9 Nephrolithiasis N20.0
--- OUTSIDE RECORDS SUMMARY | 2024-01-06 14:39 | XMS_ITS | Continuity of Care Document ---
Author Organization [facility] Address [address] [place] [id number]- Care Team Providers Care Vibrator Equipment Tester Name Role Phone Johnathan Claudio SKILL TRAINING PROGRAM COORDINATOR, Bernie Green Primary Care P ирина Encounter [facility] Date(s): 09/19/23 - 10/19/23 [facility] [address] [place] [id number]- [place] Allergies, Adverse Reactions, Alerts No Known Medication Allergies Substance Reaction Severity Status Bee Stings Active Immunizations Given and Recorded Vaccine Date Status Refusal Reason tetanus/diphtheria/pertussis, acel(Tdap) 06/11/16 Given Medications acetaminophen-HYDROcodone 325 mg-5 mg oral tablet 1 tablet, By Mouth, Every 4 hours, PRN for pain, # 12 tablet, 0 Refills, Maintenance, 04/19/23 23:25:00 EDT, Tablet, [id number], Partial fill upon patient request if the prescription is for aschedule II opioid drug., 1 tablet By Mouth Every 4... Start Date: 04/19/23 Status: Ordered Advil PM Liqui-Gels 25 mg-200 mg oral capsule 2 capsule, By Mouth, Daily at bedtime, PRN for insomnia, # 16 capsule, 0 Refills, Maintenance, 08/20/22 13:39:00 EST, Capsule, Partial fill upon patient request if the prescription is for a schedule II opioid drug. Start Date: 08/20/22 Status: Ordered buPROPion 300 mg/24 hours (XL) oral tablet, extended release 1 tablet, By Mouth, Daily, # 30 tablet, 5 Refills, Maintenance, 10/01/23 10:36:00 EST, [id number], 173, cm, 09/20/23 13:08:00 EST, Height, 79.7, kg, 07/05/23 7:42:00 EST, Dry Weight Start Date: 10/01/23 Status: Ordered Daily Allen oral tablet TAKE 1 TABLET BY MOUTH EVERY DAY Start Date: 08/20/22 Status: Ordered folic acid 1 mg oral tablet 1, tablet, By Mouth, Daily, # 90 tablet, Refills 1, Maintenance, 09/17/23 10:04:00 EST, Route to Pharmacy Electronically, [id number], 173, cm, 07/22/23 14:28:00 EST, Height, 79.7, kg, 07/05/23 7:42:00 EST, Dry Weight Start Date: 09/17/23 Status: Ordered hydrOXYzine hydrochloride 10 mg oral tablet 1 tablet, By Mouth, 3 times a day, PRN NEEDED FOR ANXIETY, # 90 tablet, 5 Refills, Maintenance, 10/18/22 11:49:00 EST, [id number], 173, cm, 09/20/22 16:29:00 EST, Height, 83, kg, 09/04/22 1:51:00 EST, Dry Weight Start Date: 10/18/22 Status: Ordered lisinopril 5 mg oral tablet 5 mg, 1, tablet, By Mouth, Daily, # 30 tablet, Refills 1, Tot. Refills 1, Maintenance, 10/11/23 15:53:00 EST, Route to Pharmacy Electronically, [id number], Partial fill upon patient request if the prescription is for a schedule II opioid drug.... Start Date: 10/11/23 Status: Ordered multivitamin Therapeutic Multiple Vitamins oral tablet 1 tablet, By Mouth, Daily, # 90 tablet, 3 Refills, Maintenance, 09/20/22 16:30:00 EST, Tablet, [id number], Partial fill upon patient request if the prescription is for a schedule II opioid drug., 1 tablet By Mouth Daily, 173, cm, 09/20/22 16:2... Start Date: 09/20/22 Stop Date: 10/20/22 Status: Ordered Vitamin B1 100 mg oral tablet 1, tablet, By Mouth, Daily, # 90 tablet, Refills 3, Maintenance, 12/17/22 8:09:00 EDT, Route to Pharmacy Electronically, [id number], 173, cm, 09/20/22 16:29:00 EST, Height, 83, kg, 09/04/22 1:51:00 EST, Dry Weight Start Date: 12/17/22 Status: Ordered Vitamin B6 50 mg oral tablet 1, tablet, By Mouth, Daily, # 90 tablet, Refills 1, Maintenance, 09/19/23 9:25:00 EST, Route to Pharmacy Electronically, [id number], 173, cm, 07/22/23 14:28:00 EST, Height, 79.7, kg, 07/05/23 7:42:00 EST, Dry Weight Start Date: 09/19/23 Status: Ordered Problem List Condition Confirmation Course Effective Dates Status Health St atus Informant Alcohol dependence Confirmed Active COVID-19 1 Confirmed 04/19/22 Active Depression, major, recurrent, moderate Confirmed Active 1Problem added by Discern Expert Social History Social History Type Response Smoking Status Never (less than 100 in lifetime) entered on: 04/15/22 Sex Patient Care team information Care Team Personnel Name: Johnathan Claudio SKILL TRAINING PROGRAM COORDINATOR, Bernie Green Position: [facility]O Associate Professional Member Role: PCP Address: Address: [address] [place] [address] [place] [address]- Name: Alexis Batista RN Position: S RN Member Role: Primary Care Nurse Name: Lety Brown RN Position: S RN Member Role: Primary Care Nurse Name: Nathan Sims RN Position: S RN Member Role: Primary Care Nurse Name: Geovanni Loo RN Position: S RN Member Role: Primary Care Nurse Address: Address: [address] [place] [phone]- Care Team Related Persons Name: TSERING MOE Name: CHAPINCITO STEELE
--- OUTSIDE RECORDS SUMMARY | 2024-01-06 14:39 | XMS_ITS | Continuity of Care Document ---
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 Start Date: 08/20/22 Status: Ordered buPROPion 150 mg/24 hours (XL) oral tablet, extended release 1 tablet, By Mouth, Every 24 hours, # 90 tablet, 1 Refills, Maintenance, 06/20/23 11:36:00 EST, [id number], 90, TAKE 1 TABLET BY MOUTH EVERY 24 HOURS, 173, cm, 05/03/23 10:26:00 EDT, Height, 80,kg, 04/19/23 16:16:00 EDT, Dry Weight Start Date: 06/20/23 Status: Ordered Daily Allen oral tablet TAKE 1 TABLET BY MOUTH EVERY DAY Start Date: 08/20/22 Status: Ordered folic acid 1 mg oral tablet 1 mg, 1, tablet, By Mouth, Daily, # 90 tablet, Refills 3, Tot. Refills 3, Maintenance, 09/20/22 16:30:00 EST, Route to Pharmacy Electronically, [facility]/pharmacy #[id number], Partial fill upon patient request if the prescription is for a schedule II opioid drug.... Start Date: 09/20/22 Stop Date: 10/20/22 Status: Ordered hydrOXYzine hydrochloride 10 mg oral tablet 1 tablet, By Mouth, 3 times a day, PRN NEEDED FOR ANXIETY, # 90 tablet, 5 Refills, Maintenance, 10/18/22 11:49:00 EST, [facility], 173, cm, 09/20/22 16:29:00 EST, Height, 83, kg, 09/04/22 1:51:00 EST, Dry Weight Start Date: 10/18/22 Status: Ordered multivitamin Therapeutic Multiple Vitamins oral tablet 1 tablet, By Mouth, Daily, # 90 tablet, 3 Refills, Maintenance, 09/20/22 16:30:00 EST, Tablet, [facility]/pharmacy #[id number], Partial fill upon patient request if the prescription is for a schedule II opioid drug., 1 tablet By Mouth Daily, 173, cm, 09/20/22 16:2... Start Date: 09/20/22 Stop Date: 10/20/22 Status: Ordered Vitamin B1 100 mg oral tablet 1, tablet, By Mouth, Daily, # 90 tablet, Refills 3, Maintenance, 12/17/22 8:09:00 EDT, Route to Pharmacy Electronically, [id number], 173, cm, 09/20/22 16:29:00 EST, Height, 83, kg, 09/04/22 1:51:00 EST, Dry Weight Start Date: 12/17/22 Status: Ordered Vitamin B6 50 mg oral tablet 1, tablet, By Mouth, Daily, # 90 tablet, Refills 1, Maintenance, 03/24/23 12:08:00 EDT, Route to Pharmacy Electronically, [id number], 173, cm, 03/24/23 11:24:00 EDT, Height, 83, kg, 09/04/22 1:51:00 EST, Dry Weight Start Date: 03/24/23 Status: Ordered Problem List Condition Confirmation Course Effective Dates Status Health St atus Informant Alcohol dependence Confirmed Active COVID-19 1 Confirmed 04/19/22 Active 1Problem added by Discern Expert Vital Signs Most recent to oldest [Reference Range]: 1 2 3 Height 173 cm (07/05/23 7:42 AM) Oxygen Saturation [94-100 %] 95 % (07/05/23 8:52 AM) 96 % (07/05/23 8:43 AM) 95 % (07/05/23 7:42 AM) Pulse Rate [55-90 bpm] 82 bpm (07/05/23 8:52 AM) 79 bpm (07/05/23 8:43 AM) 77 bpm (07/05/23 7:42 AM) Blood Pressure [90-138/55-84 mm Hg] 148/96mm Hg *H* (07/05/23 8:52 AM) 144/93mm Hg *H* (07/05/23 8:43 AM) 154/99mm Hg *H* (07/05/23 7:42 AM) Respiratory Rate [16-30 br/min] 18 br/min (07/05/23 8:52 AM) 20 br/min (07/05/23 8:43 AM) 21 br/min (07/05/23 7:42 AM) Temperature [96.8-100.4 DegF] 98.1 DegF (07/05/23 7:42 AM) Mode of Delivery (Oxygen) Room air (07/05/23 8:52 AM) Room air (07/05/23 8:43 AM) Room air (07/05/23 7:42 AM) Blood pressure sites Arm, left (07/05/23 8:52 AM) Arm, left (07/05/23 8:43 AM) Arm, left (07/05/23 7:42 AM) Temperature Route Temporal (07/05/23 7:42 AM) Dry Weight 79.7 kg (07/05/23 7:42 AM) Social History Social History Type Response Smoking Status Never (less than 100 in lifetime) entered on: 04/15/22 Sex Note * Debra Alves RN: PERFORM Event Display: Discharge/Transfer Note Hospital Authored Date: [id number] Nursing Discharge Note Entered On: 07/05/2023 8:41 EST Performed On: 07/05/2023 8:41 EST by Debra Alves RN Nursing Discharge Note 2 Discharge Time : 07/05/2023 9:33 EST Debra Alves RN - 07/05/2023 9:34 EST Discharge Level of Care at Discharge : Home/Alf/Foster Care Patient Left Unit Via : Wheelchair Patient Accompanied Off Unit with : Responsible adult DC Instructions Provided & Signed by Pt : Yes Patient Understands D/C Instructions : Yes Patient Instructions Discharge Signed : Yes Did Pt have Specialty Bed or Wound Vac : No Debra Alves RN - 07/05/2023 8:41 EST * Debra Alves RN: PERFORM Event Display: Patient Education/Instruction Authored Date: [id number] Inpatient Adult Discharge Instructions [address] [id number] Name: CHAPINCITO STEELE : 1970 Visit: 07/05/2023 07:22:00 Current Date: 07/05/2023 08:49 Account: [id number] Inpatient Adult Discharge Instructions We would like to thank you for allowing us to assist you with your healthcare needs. The following includes patient education materials and information regarding your injury/illness. Our entire staffstrives to provide an excellent experience for our patients and their families. PLEASE ENSURE YOU FOLLOW-UP PER THE INSTRUCTIONS BELOW! ?? YOUR OPINION IS IMPORTANT TO US! Please complete the survey you may receive by mail or email. Your feedback will be used to make improvements to the healthcare experiences of our patients and their families. Surveys are administered by [employer] ?? If further treatment with your primary care physician or another doctor is recommended, it is important for you to keep the appointment. Call your primary care physician or return to the Emergency Department immediately if your condition worsens, fails to improve, or new symptoms develop. If you need to find a doctor, you can call [facility] Link for a referral at [phone] or toll free at [phone] ([phone]) or log in to [email or web address].. ?? [facility], in keeping with [facility] guidance, no longer requires face masks for staff, patientsor visitors in most situations. Similiar to time spent indoors at other locations, there is the chance that you were exposed to repiratory viruses during your time with us (such as flu or COVID-19). If you develop symptoms concerning for a viral respiratory infection, please seek testing (and treatment if indicated) from your medical provider or home test kit. ?? You can view and manage your care through the patient portal or by using a health care sai of your choosing. [employer] is a website that allows you to securely view your medical information including your hospital discharge summary, office visit summaries, medications and follow-up visits. You can also request appointments, renew medications, and request access to your medical information using a health care sai of your choosing, or just ask a question. You can enroll at [email or web address] or register during your next office visit. You have been discharged from [facility], Patient Care Unit: ENDO. If you have any questions regarding these instructions after you leave, please call us and we will be happy to assist you. [facility] Your Care Team Attending Physician Lc Alejo DO Reason for Admission SCREEN VARICES Tests Performed Below is a partial list of the tests performed during your hospitalization. You may have had other tests and procedures not included in this list. Please discuss all test results with your provider. Primary Care Provider Johnathan Claudio NP, Bernie Green Advance Directive Health Care Proxy on File Yes - Health Care Proxy Discharge Vitals Temperature: 98.1 DegF Height: 173 cm Pulse Rate: 79 bpm ?? Respiratory Rate: 20 br/min ?? Systolic Blood Pressure:??144 mm Hg??High ?? Diastolic Blood Pressure:??93 mm Hg??High ?? Oxygen Saturation: 96 % ?? Studies Pending All tests and labs ordered during this hospital stay have been completed unless listed below. Please discuss all pending results with your provider listed above in these instructions. ?? No incomplete studies found What to do next Instructions From Your Doctor Discharge Orders Scheduled Follow-Up Appointments Tuesday 2:20 PM EST ?? With: Johnathan Claudio NP, Bernie Green Where: [facility] [address] [address] [place], [place] - Status: Pending Tuesday 3:30 PM EST ?? With: Jeri DÍAZ, Eron Mao Where: [facility] [address] [place] [address]- Status: Pending You Need to Schedule the Following Appointments Follow Up with??follow up with primary care as needed Follow Up with??Bernie Claudio When:??In 0 days Where: [address] [place] [id number]- Business (1) Discharge Medications CHAPINCITO STEELE :1970 Visit Date:07/05/2023 Medications: Please continue your medications until treatment is completed or stopped by your provider. Medications not listed below should be discontinued. Discuss any questions related to medications with your provider. What How Much When Instructions Next Dose Unchanged Acetaminophen / Hydrocodone (acetaminophen-HYDROcodone 325 mg-5 mg oral tablet) 1 tab(s) Oral Every 4 hours as needed for for pain Unchanged BuPROpion (buPROPion 150 mg/ 24 hours (XL) oral tablet, extended release) 1 tab(s) Oral Every 24 hours Unchanged diphenhydrAMINE-ibuprofen (Advil PM Liqui-Gels 25 mg-200 mg oral capsule) 2 capsule Oral Daily at Bedtime as needed for for insomnia Unchanged Folic Acid (folic acid 1 mg oral tablet) 1 tab(s) Oral Daily Unchanged HydrOXYzine (hydrOXYzine hydrochloride 10 mg oral tablet) 1 tab(s) Oral 3 times a day as needed for NEEDED FOR ANXIETY Unchanged Multivitamin (Daily Allen oral tablet) TAKE 1 TABLET BY MOUTH EVERY DAY ?? Unchanged Multivitamin (multivitamin Therapeutic Multiple Vitamins oral tablet) 1 tab(s) Oral Daily Unchanged Pyridoxine (Vitamin B6 50 mg oral tablet) 1 tab(s) Oral Daily Unchanged Thiamine (Vitamin B1 100 mg oral tablet) 1 tab(s) Oral Daily Test Results Below is a partial list of the most recent Laboratory test results done prior to this discharge. You may have had other tests and procedures not included in this list. Please discuss all test resultswith your provider. Allergies (NKA means No Known Allergies) Bee Stings No Known Medication Allergies Problems Active Problems??(2) Alcohol dependence?? COVID-19?? Education Materials Below is the list of Educational Leaflet Providered with your Discharge Instructions. Colon Polypectomy Discharge Instructions?? Hemorrhoids Discharge Instructions?? Hemorrhoids Discharge Instructions?? Surgery Medical Daystay Surgical Overnight Discharge Instructions?? Valuables and Belongings I fully understand and agree that [facility] accepts no responsibility for all my personal property including clothing, toilet articles, radios, jewelry, dentures, hearing aids, rings, money, or any other property that is in my possession or is brought to me after admission. I understand certain valuables may be placed in a hospital safe for a short period of time. I understand that the hospital is not liable for loss or damage due to accident, fire, or other natural occurrence while said property is in the safe. I accept full responsibility for any personal property that I keep with me, and will not hold the hospital responsible in case of loss or disappearance. I acknowledge that i have been encouraged to send valuables and belongings home. ?? Date for Pt to Sign Valuables/Belongings: 07/05/23 07:42:00 ?? Valuables & Belongings ?? Clothes Electronic devices Jewelry Monetary Items Personal devices Miscellaneous Medications (Valuables) Valuables at Bedside Pants, Shirt, Shoes, Undergarments ? Valuables Sent Home ? Valuables Sent to Security ? Other Discharge Information ? Case Management Discharge Plan?? Discharge Plan?? Discharge Level of Care at Discharge: Home/Alf/Foster Care ?? Pulmonary Rehab Status?? Pulmonary Rehab Discharge Status?? Respiratory Rate: 20 br/min ? Common Emergency Awareness Tips IS IT A STROKE? Act FAST and Check for these signs: FACE Does the face look uneven? ARM Does one arm drift down? SPEECH Does their speech sound strange? TIME Call at any sign of stroke ?? Heart Attack Signs Chest discomfort: Most heart attacks involve discomfort in the center of the chest and lasts more than a few minutes, or goes away and comes back. It can feel like uncomfortable pressure, squeezing, fullness or pain. Discomfort in upper body: Symptoms can include pain or discomfort in one or both arms, back, neck, jaw or stomach. Shortness of breath: With or without discomfort. Other signs: Breaking out in a cold sweat, nausea, or lightheaded. Remember, MINUTES DO MATTER. If you experience any of these heart attack warning signs, call to get immediate medical attention! ?? Smoking can increase your chances of developing chronic health problems and can cause harmful effects to other family members in your house. If you smoke, you are strongly encouraged to quit. Please call [facility] [employer] Link at [phone] or [phone] ([phone]) or log in to [email or web address] for referrals to smoking cessation programs. ?? 317 Suicide & Crisis Lifeline is available 07/03 if you or someone you know needs to find a reason to keep living. By calling 222 you'll be connected to a skilled, trained counselor at a crisis center in your area. INPATIENT DISCHARGE INSTRUCTIONS SIGNATURE PAGE CHAPINCITO STEELE Location:[facility] Registration Date and Time:07/05/2023 07:22 [facility] Primary Care Physician: Johnathan Claudio NP, Bernie Green, Attending Physician: Lc Alejo DO, I CHAPINCITO STEELE, have received the above patient education materials/instructions and have verbalized understanding. If ambulance or transport services are being used I further acknowledge being given a choice of service. ?? If you need to contact me, please call me at this number: . Patient/Studio Producer Name: Patient/Studio Producer Signature: Relationship to Patient: Witness Name/Signature: Date: * Debra Alves RN: PERFORM, SIGN, VERIFY Event Display: Patient Education Handout Authored Date: [id number] * Debra Alves RN: PERFORM Event Display: Patient Education Leaflets Authored Date: [id number] Colon Polypectomy Discharge Instructions ?? 682 ?? Colon Polypectomy Discharge Instructions ??You must carefully read the Consumer Information Use and Disclaimer below in order to understand and correctly use this information??About this topicThe colon is also called the large intestine. It is a long, hollow tube at the end of your digestive tract. It absorbs water from solid waste and changes it from liquid to a solid bowel movement.??A colon polyp is a growth of extra tissue that is not normally in your colon. Colon polyps do not often cause any signs. Most colon polyps are not cancer, but some polyps may turn into cancer. The doctor takes the polyps out during a procedure called a colonoscopy and sends them to the lab for a check to make sure there is no cancer.??You may have a colon polyp or multiple polyps removed. The doctor will send them to the lab to see what type they are. If a polyp is very large, it may need to be removed by surgery.??What care is needed at home? Ask your doctor what you need to do when you go home. Make sure??you ask questions if you do not understand what the doctor says. ??? Do not drive for 24 hours after a colonoscopy. ??? Take your drugs as ordered by your doctor. ??? Go back to your normaldiet unless your doctor has told you to make? some changes in your diet. ??? Rest ??What follow-up care is needed? Your doctor may ask you to make visits to the office to check on your??progress. Be sure to keep these visits. ??? Your doctor may suggest you get tested regularly. People with colon??polyps need to have a colonoscopy regularly to check for the growth??of new polyps. ??? Some polyps may not be removed, and more surgery may be needed. ??? The results of the polyp testing will be given to you at one of these??visits. ??What drugs may be needed?The doctor may order drugs to: ??? Prevent hard stools ??? Help with pain ??? Reduce your risk of colon polyps or colon cancer ??Will physical activity be limited?You may feel sleepy after the colonoscopy. Try to get some rest.??What can be done to prevent this health problem? Have regular colonoscopies.? Eat foods high in fiber. ??? Eat foods low in fat. ??? Limit your intake of beer, wine, and mixed drinks (alcohol). ??? Ask your doctor or dietitian for a diet that is right for you. Include??calcium in your diet. Good sources of calcium include milk, cheese,??and yogurt. ??When do I need to call the doctor? Signs of infection. These include a fever of 100.4??F (38??C) or higher,??chills, and anal itching or pain. ??? Bleeding from rectum that gets worse? Belly becomes swollen and sore ??? Upset stomach and throwing up continues after you return home ??? Not being able to move your bowels ??? Weight loss without trying ??? Blood in your stool ??Teach Back: Helping You UnderstandThe Teach Back Method helps you understand the information we are giving you. After you talk with the staff, tell them in your own words what you learned. This helps to make sure the staff has described each thing clearly. It also helps to explain things that mayhave been confusing. Before going home, make sure you can do these:? I can tell you about my co ndition. ??? I can tell you what changes I need to make with my diet. ??? I can tell you what I will do if my stomach is swollen, I have belly pain,??or there is blood in my stool. ??Where can I learn more?BetterHealthhttps://www.betterhealth.nasir.gov.au/health/ConditionsAndTreatme nts/colonoscopyNHSh ttps://www.nhs.uk/conditions/bowel-polyps/UpToDatehttps://www.[employer]/kartik nts/rgzwc-gbigvw-cekdnx-the-basics??Last Reviewed Odsw2958-34-24Zjwpfxgx Information Use and Disclaimer:This generalized information is a limited summary of diagnosis, treatment, and/or medication information. It is notmeant to be comprehensive and should be used as a tool to help the user understand and/or assess potential diagnostic and treatment options. It does NOT include all information about conditions, treatments, medications, side effects, or risks that may apply to a specific patient. It is not intendedto be medical advice or a substitute for the medical advice, diagnosis, or treatment of a health care provider based on the health care provider's examination and assessment of a patient???s specificand unique circumstances. Patients must speak with a health care provider for complete information about their health, medical questions, and treatment options, including any risks or benefits regarding use of medications. This information does not endorse any treatments or medications as safe, effective, or approved for treating a specific patient. [employer] and its affiliates disclaim any warranty or liability relating to this information or the use thereof. The use of this information is governed by the Terms of Use, available at??https://www.EasySize.re3D/en/know/clinical-effectiveness- termsLast Updated 10/07/21? * Debra Alves RN: PERFORM Event Display: Patient Education Leaflets Authored Date: [id number] Hemorrhoids Discharge Instructions ?? 672 ??Hemorrhoids Discharge Instructions ??You must carefully read the Consumer Information Use and Disclaimer below in order to understand and correctly use this information?? About this topic Hemorrhoids are swollen veins in the rectum. Your rectum is where stool leaves your body. You may be able to see or feel your hemorrhoids outside of your body, but some hemorrhoids are inside of yourrectum and cannot be seen. Hemorrhoids can cause itching, pain, and bleeding. Being constipated or having hard stools can make your hemorrhoids worse.?? What care is needed at home? Ask your doctor what you need to do when you go home. Make sure??you ask questions if you do not understand what the doctor says. This??way you will know what you need to do. ??? Soak your bottomin a few inches of warm water for 10 to 15 minutes??at a time. You can do this 2 to 3 times each day. Do not add soap,??bubble bath, or anything to the water. ??? Use djyo-hqx-pedaikt medicines to treat your hemorrhoids. These??include ointments and creams to help with pain and swelling. You can??also use a product like witch katty to help dry out the skin in the area. ??? To help with constipation: ??? Use stool softeners when needed. ??? Eat high-fiber foods. These include whole grains, fruits, and??vegetables. ??? Drink plenty of water and other fluids each day. This helps to??keep your stools soft. ??? Set a regular schedule to try and have a bowel movement. Do??not ignore the urge to go to the bathroom. Don???t hold it in. ??? Give yourself plenty of time to have a bowel movement, but do not linger on the toilet either, by sitting and reading for a long time. ??? Do mild exercise each day like taking a walk. ??? Avoid heavy lifting or straining while the hemorrhoid is healing. ?? What follow-up care is needed? If your problem does not get better, other care may be needed. Your doctor may ask you to make visits to the office to check on your progress. Be sure to keep these visits.?? What drugs may be needed? The doctor may order drugs to: ??? Help with pain and swelling ??? Ease itching ??? Soften stools ?? Will physical activity be limited? Working out can help with digestion. It might help keep you from having hard stools. Ask your doctor about the best kind of exercise for you. ?? What problems could happen? You may have very bad bleeding. ??? Sometimes, treatments do not work. Some hemorrhoids are very??large. You might need surgery for either of these. ?? When do I need to call the doctor? You have a lot of bleeding from your rectum. ??? Your bowel movement looks like tar. ??? You are not able to pass stool because of pain from your??hemorrhoids. ??? Your pain gets worse and is nothelped by nabp-rxt-wztopwl??medicines, warm water, or your home care. ??? You have a fever of 100.4??F (38??C) or higher. ?? Teach Back: Helping You Understand The Teach Back Method helps you understand the information we are giving you. After you talk with the staff, tell them in your own words what you learned. This helps to make sure the staff has described each thing clearly. It also helps to explain things that may have been confusing. Before going home, make sure you can do these: ??? I can tell you about my condition. ??? I can tell you what may help ease my pain. ??? I can tell you what I will do if I have blood in my rectum. Where can I learn more?[employer] [place] [employer]https://familydoctor.or g/condition/hemorrhoids/National Digestive Disease Information Clearinghousehttps://www.niddk.nih.go v/health-information/digestive-diseases/hemorrhoids/definition-factsLast Reviewed Cpuz5257-04-61Gqtlczsq Information Use and Disclaimer:This generalized information is a limited summary of diagnosis,treatment, and/or medication information. It is not meant to be comprehensive and should be used asa tool to help the user understand and/or assess potential diagnostic and treatment options. It does NOT include all information about conditions, treatments, medications, side effects, or risks thatmay apply to a specific patient. It is not intended to be medical advice or a substitute for the medical advice, diagnosis, or treatment of a health care provider based on the health care provider's examination and assessment of a patient???s specific and unique circumstances. Patients must speak with a health care provider for complete information about their health, medical questions, and treatment options, including any risks or benefits regarding use of medications. This information does not endorse any treatments or medications as safe, effective, or approved for treating a specific patient. [employer] and its affiliates disclaim any warranty or liability relating to this information or the use thereof. The use of this information is governed by the Terms of Use, available at??htt ps://www.EasySize.re3D/en/know/hxemewnt-yqipkkwgcmgpm-qegimKucc Updated 10/07/21? * Debra Alves RN: PERFORM Event Display: Patient Education Leaflets Authored Date: [id number] Hemorrhoids Discharge Instructions ?? 672 ??Hemorrhoids Discharge Instructions ??You must carefully read the Consumer Information Use and Disclaimer below in order to understand and correctly use this information?? About this topic Hemorrhoids are swollen veins in the rectum. Your rectum is where stool leaves your body. You may be able to see or feel your hemorrhoids outside of your body, but some hemorrhoids are inside of yourrectum and cannot be seen. Hemorrhoids can cause itching, pain, and bleeding. Being constipated or having hard stools can make your hemorrhoids worse.?? What care is needed at home? Ask your doctor what you need to do when you go home. Make sure??you ask questions if you do not understand what the doctor says. This??way you will know what you need to do. ??? Soak your bottomin a few inches of warm water for 10 to 15 minutes??at a time. You can do this 2 to 3 times each day. Do not add soap,??bubble bath, or anything to the water. ??? Use xxta-xdj-pwwgpor medicines to treat your hemorrhoids. These??include ointments and creams to help with pain and swelling. You can??also use a product like witch katty to help dry out the skin in the area. ??? To help with constipation: ??? Use stool softeners when needed. ??? Eat high-fiber foods. These include whole grains, fruits, and??vegetables. ??? Drink plenty of water and other fluids each day. This helps to??keep your stools soft. ??? Set a regular schedule to try and have a bowel movement. Do??not ignore the urge to go to the bathroom. Don???t hold it in. ??? Give yourself plenty of time to have a bowel movement, but do not linger on the toilet either, by sitting and reading for a long time. ??? Do mild exercise each day like taking a walk. ??? Avoid heavy lifting or straining while the hemorrhoid is healing. ?? What follow-up care is needed? If your problem does not get better, other care may be needed. Your doctor may ask you to make visits to the office to check on your progress. Be sure to keep these visits.?? What drugs may be needed? The doctor may order drugs to: ??? Help with pain and swelling ??? Ease itching ??? Soften stools ?? Will physical activity be limited? Working out can help with digestion. It might help keep you from having hard stools. Ask your doctor about the best kind of exercise for you. ?? What problems could happen? You may have very bad bleeding. ??? Sometimes, treatments do not work. Some hemorrhoids are very??large. You might need surgery for either of these. ?? When do I need to call the doctor? You have a lot of bleeding from your rectum. ??? Your bowel movement looks like tar. ??? You are not able to pass stool because of pain from your??hemorrhoids. ??? Your pain gets worse and is nothelped by lhrj-yqz-xmilyvv??medicines, warm water, or your home care. ??? You have a fever of 100.4??F (38??C) or higher. ?? Teach Back: Helping You Understand The Teach Back Method helps you understand the information we are giving you. After you talk with the staff, tell them in your own words what you learned. This helps to make sure the staff has described each thing clearly. It also helps to explain things that may have been confusing. Before going home, make sure you can do these: ??? I can tell you about my condition. ??? I can tell you what may help ease my pain. ??? I can tell you what I will do if I have blood in my rectum. Where can I learn more?[employer]https://familydoctor.or g/condition/hemorrhoids/National Digestive Disease Information Clearinghousehttps://www.niddk.nih.go v/health-information/digestive-diseases/hemorrhoids/definition-factsLast Reviewed [id number] Information Use and Disclaimer:This generalized information is a limited summary of diagnosis,treatment, and/or medication information. It is not meant to be comprehensive and should be used asa tool to help the user understand and/or assess potential diagnostic and treatment options. It does NOT include all information about conditions, treatments, medications, side effects, or risks thatmay apply to a specific patient. It is not intended to be medical advice or a substitute for the medical advice, diagnosis, or treatment of a health care provider based on the health care provider's examination and assessment of a patient???s specific and unique circumstances. Patients must speak with a health care provider for complete information about their health, medical questions, and treatment options, including any risks or benefits regarding use of medications. This information does not endorse any treatments or medications as safe, effective, or approved for treating a specific patient. [employer] and its affiliates disclaim any warranty or liability relating to this information or the use thereof. The use of this information is governed by the Terms of Use, available at??htt ps://www.EasySize.com/en/know/krpanuci-aoyjyjovyfbdm-nudtqItjq Updated 10/07/21? Patient Care team information Care Team Personnel Name: Johnathan Claudio NP, Bernie Green Position: [facility] PCO Associate Professional Member Role: PCP Address: Address: [address] [place] [address] [place], [place] [address] Name: Lynne BUENO, Alexis Sevilla Position: S RN Member Role: Primary Care Nurse Name: Lety Brown RN Position: [facility] RN Member Role: Primary Care Nurse Name: Nathan Sims RN Position: [facility] RN Member Role: Primary Care Nurse Name: Geovanni Loo RN Position: [facility] RN Member Role: Primary Care Nurse Address: Address: [address] [place] [address]- Care Team Related Persons Name: TSERING MOE Name: CHAPINCITO STEELE
--- OUTSIDE RECORDS SUMMARY | 2024-01-06 14:39 | XMS_ITS | Continuity of Care Document ---
Author Organization [facility] Medicine Address [address] [place] [address]- Care Team Providers Care Blower Mechanic Name Role Phone Johnathan Claudio MATHEMATICAL ENGINEERING TECHNICIAN, Bernie Green Primary Care P ирина [place] [facility] [place]/23 [facility] Medicine [address] [place] [id number] Allergies, Adverse Reactions, Alerts No Known Medication [...] 1 Refills, Maintenance, 06/20/23 11:36:00 EST, [id number], 90, TAKE 1 TABLET BY MOUTH EVERY [...] 09/20/22 16:30:00 EST, Route to Pharmacy Electronically, [facility]/pharmacy #[id number], Partial fill upon patient request if the prescription is for a schedule II opioid drug.... Start Date: 09/20/22 Stop Date: 10/20/22 Status: Ordered hydrOXYzine hydrochloride 10 mg oral tablet 1 tablet, By Mouth, 3 times a day, PRN NEEDED FOR ANXIETY, # 90 tablet, 5 Refills, Maintenance, 10/18/22 11:49:00 EST, [id number], 173, cm, 09/20/22 16:29:00 EST, Height, 83, kg, 09/04/22 1:51:00 EST, Dry Weight Start Date: 10/18/22 Status: Ordered multivitamin Therapeutic Multiple Vitamins oral tablet 1 tablet, By Mouth, Daily, # 90 tablet, 3 Refills, Maintenance, 09/20/22 16:30:00 EST, Tablet, [facility]/pharmacy #[id number], Partial fill upon patient request if the prescription is for a schedule II opioid drug., 1 tablet By Mouth Daily, 173, cm, 09/20/22 16:2... Start Date: 09/20/22 Stop Date: 10/20/22 Status: Ordered Vitamin B1 100 mg oral tablet 1, tablet, By Mouth, Daily, # 90 tablet, Refills 3, Maintenance, 12/17/22 8:09:00 EDT, Route to Pharmacy Electronically, [id number], 173, cm, 09/20/22 16:29:00 EST, Height, 83, kg, 09/04/22 1:51:00 EST, Dry Weight Start Date: 12/17/22 Status: Ordered Vitamin B6 50 mg oral tablet 1, tablet, By Mouth, Daily, # 90 tablet, Refills 1, Maintenance, 03/24/23 12:08:00 EDT, Route to Pharmacy Electronically, [id number], 173, cm, 03/24/23 11:24:00 EDT, Height, 83, kg, 09/04/22 1:51:00 EST, Dry Weight Start Date: 03/24/23 Status: Ordered Problem List Condition Confirmation Course Effective Dates Status Health St [facility] Informant Alcohol dependence Confirmed Active COVID-19 1 Confirmed 04/19/22 Active 1Problem added by Discern Expert Social History Social History Type Response Smoking Status Never (less than 100 in lifetime) entered on: 04/15/22 Sex Patient Care team information Care Team Personnel Name: Johnathan Claudio MATHEMATICAL ENGINEERING TECHNICIAN, Bernie Green Position: [facility] PCO Associate Professional Member Role: PCP Address: Address: [address] [place] [address] [place] [address]- Name: Alexis Batista RN Position: S RN Member Role: Primary Care Nurse Name: Lety Brown RN Position: S RN Member Role: Primary Care Nurse Name: Nathan Sims RN Position: S RN Member Role: Primary Care Nurse Name: Geovanni Loo RN Position: S RN Member Role: Primary Care Nurse Address: Address: [address] [place] [address]- Care Team Related Persons Name: TSERING MOE Name: CHAPINCITO STEELE
--- OUTSIDE RECORDS SUMMARY | 2024-01-06 14:39 | XMS_ITS | Continuity of Care Document ---
Author Organization [facility] ter Address [address] [place] [id number] Care Team Providers Care Medicine Man Name Role Phone Johnathan Claudio TYPING CHECKER, Bernie Green Primary Care P ирина Encounter [facility] [place] Date(s): 12/16/23 - 12/17/[address] [id number]- Discharge Disposition: A-D/C Home Attending Physician: Avery Gan DO Admitting Physician: Josue COLON, Raven Aguayo Referring Physician: Not on Staff, Referring MD Allergies, Adverse Reactions, Alerts No Known Medication Allergies Substance Reaction Severity Status Bee Stings Active Immunizations Given and Recorded Vaccine Date Status Refusal Reason tetanus/diphtheria/pertussis, acel(Tdap) 06/11/16 Given Medications buPROPion 300 mg/24 hours (XL) oral tablet, extended release 1 tablet, By Mouth, Daily, # 30 tablet, 5 Refills, Maintenance, 10/01/23 10:36:00 EST, [id number], 173, cm, 09/20/23 13:08:00 EST, Height, 79.7, kg, 07/05/23 7:42:00 EST, Dry Weight Start Date: 10/01/23 Status: Ordered folic acid 1 mg oral tablet 1, tablet, By Mouth, Daily, # 90 tablet, Refills 1, Maintenance, 09/17/23 10:04:00 EST, Route to Pharmacy Electronically, [id number], 173, cm, 07/22/23 14:28:00 EST, Height, 79.7, kg, 07/05/23 7:42:00 EST, Dry Weight Start Date: 09/17/23 Status: Ordered hydrOXYzine hydrochloride 10 mg oral tablet 1 tablet, By Mouth, 3 times a day, PRN NEEDED FOR ANXIETY, # 90 tablet, 5 Refills, Maintenance, 10/18/22 11:49:00 EST, [id number], 173, cm, 09/20/22 16:29:00 EST, Height, 83, kg, 09/04/22 1:51:00 EST, Dry Weight Start Date: 10/18/22 Status: Ordered naltrexone 50 mg oral tablet 1 tablet = 50 mg, By Mouth, Daily, # 90 tablet, 0 Refills, Maintenance, 12/16/23 1:14:00 EDT, Tablet, Partial fill upon patient request if the prescription is for a schedule II opioid drug. Start Date: 12/16/23 Status: Ordered Vitamin B1 100 mg oral tablet 1, tablet, By Mouth, Daily, # 90 tablet, Refills 3, Maintenance, 12/17/22 8:09:00 EDT, Route to Pharmacy Electronically, [facility], 173, cm, 09/20/22 16:29:00 EST, Height, 83, kg, 09/04/22 1:51:00 EST, Dry Weight Start Date: 12/17/22 Status: Ordered Vitamin B6 50 mg oral tablet 1, tablet, By Mouth, Daily, # 90 tablet, Refills 1, Maintenance, 09/19/23 9:25:00 EST, Route to Pharmacy Electronically, [id number], 173, cm, 07/22/23 14:28:00 EST, Height, 79.7, kg, 07/05/23 7:42:00 EST, Dry Weight Start Date: 09/19/23 Status: Ordered Problem List Condition Confirmation Course Effective Dates Status H ealth Status Informant Alcohol dependence Confirmed Active Alcoholic cirrhosis of liver without ascites Confirmed Active COVID-19 1 Confirmed 04/19/22 Active Kidney stone Confirmed Active Elevated liver enzymes Confirmed Active Anxiety with depression Confirmed Active Depression, major, recurrent, moderate Confirmed Active Thrombocytopenia Confirmed Active 1Problem added by Discern Expert Results Radiology Reports * Exam Date Time Procedure Performing Provider Status 12/16/23 12:49 AM Chest Portable Shonda Byrne; Wilbur (Ve rified) Notes: (Chest Portable) Reason For Exam: Shortness of Breath RESULT: Chest Portable Examination: Portable chest performed on 12/16/2023. History: Shortness of breath. Findings: A frontal view of the chest is compared to a prior study dated 04/19/2023. The cardiac silhouette is within normal limits for size. Low lung volumes are present. The lungs are clear. The osseous structures are unremarkable. IMPRESSION: There is no acute cardiopulmonary disease. WSN: [id number] Ordering Physician: Reshma Haley Dictated By: Rosaura Boo MD Dictated Date/Time: 12/16/23 7:44 am Reviewed By: Rosaura Boo MD Signed By: Rosaura Boo MD Signed Date/Time: 12/16/23 7:44 am Transcribed By: MINDY Transcribed Date/Time: 12/16/23 7:43 am * Exam Date Time Procedure Performing Provider Status 12/16/23 3:[address] Abdomen and Pelvis W/O Contrast Leah Street; Auth (Verified) Notes: (CT Abdomen and Pelvis W/O Contrast) Reason For Exam: Left Flank pain;Pain RESULT: CT Abdomen and Pelvis W/O Contrast CT Abdomen and Pelvis W/O Contrast REASON: Pain; Left Flank pain; Clinical Question(s): Kidney stone; TECHNIQUE: Spiral CT through the abdomen and pelvis without IV contrast formatted in 3 planes. Thisstudy was performed without oral contrast. Weight- based protocol using automatic tube modulation was used to optimize exposure parameters. CTDIvol Body: 5.60 mGy, DLP Body: 289 mGy*cm. COMPARISON: 04/19/2023. Right Upper quadrant ultrasound from 09/03/2022 and 10/11/2023 FINDINGS: Jig Bore Operator View Findings, Lines and Tubes: None. Visualized Chest: Bibasilar atelectasis. No pleural effusion. The heart is normal in size. No pericardial effusion. Diaphragm: Normal. Liver: Cirrhotic hepatic morphology. Gallbladder: No CT evidence of gallbladder pathology. Bile ducts: No biliary ductal dilation. Spleen: Normal. Pancreas: Normal. Adrenal glands: Normal. Kidneys and ureters: No hydronephrosis, or noncontrast evidence of suspicious masses. Left lower pole 1.2 cm calculus. This appears slightly bigger than the prior study from 2022. Bladder: Normal. Reproductive organs: Unremarkable. Stomach, small bowel, and large bowel: Stomach and small bowel loops are normal in caliber. Moderate colonic stool retention. No obstruction. Appendix: Normal. Peritoneum and retroperitoneum: No ascites or pneumoperitoneum. No omental or mesenteric lesions. Lymph nodes: No enlarged lymph nodes. Blood vessels: Mild vascular calcifications but no aneurysm. Abdominal and pelvic wall: Small fat-containing umbilical hernia. Bones: No acute abnormality. Chronic left posterior rib fracture. Unchanged chronic bilateral pars defects at L5 vertebral body. Mild chronic wedge compression deformity of the L2 vertebral body withmoderate height loss. Mild degenerative changes of the spine. IMPRESSION: 1. Left lower pole 1.2 cm nonobstructing calculus. 2. Cirrhotic hepatic morphology. I have personally reviewed the images and I agree with this report. WSN: [id number] Ordering Physician: Evan Hoffmann Dictated By: Indu Zarate MD Dictated Date/Time: 12/16/23 7:27 am Reviewed By: Gustavo Kerr MD Signed By: Gustavo Kerr MD Signed Date/Time: 12/16/23 7:32 am Transcribed By: MINDY Transcribed Date/Time: 12/16/23 3:38 am * Exam Date Time Procedure Performing Provider Status 12/15/23 11:23 PM US Liver Daisy Grajeda; Auth (V erified) Notes: (US Liver) Reason For Exam: abnormal LFTs;Other: RESULT: US Liver US Liver Hx of Present Illness: routine labs today show elevated LFT's, pt 14 days etoh free after detox, noblack stools, no abd pain, occas. Left flank pain,; Reason: Other:; abnormal LFTs; Clinical Question(s): Cirrhosis COMPARISON: None. IMAGING TECHNIQUE: Grayscale and color Doppler ultrasound examination of the liver. FINDINGS: Liver: Coarse hepatic echotexture. No suspicious lesion. Nodular hepatic contour. Main portal vein patent with normal hepatopetal direction of flow. Biliary Tree: No intrahepatic or extrahepatic bile duct dilation is identified. Common duct: 0.4 cm. IMPRESSION: Cirrhotic morphology. No suspicious lesion. I have personally reviewed the images and I agree with this report. WSN: [id number] Ordering Physician: Reshma Haley Dictated By: Lobo[Radiology] Teresa COLON Dictated Date/Time: 12/15/23 11:27 p Reviewed By: Leonard Pham MD Signed By: Leonard Pham MD Signed Date/Time: 12/15/23 11:32 pm Transcribed By: CSB Transcribed Date/Time: 12/15/23 11:26 pm Vital Signs Most recent to oldest [Reference Range]: 1 2 3 Height 173 cm (12/17/23 6:21 AM) 173 cm (12/16/23 9:13 PM) 173 cm (12/16/23 1:20 PM) Weight 78.1 kg (12/16/23 4:27 AM) 78.3 kg (12/15/23 8:55 PM) Oxygen Saturation [94-100 %] 94 % (12/17/23:21 AM) 96 % (12/16/23 9:13 PM) 95 % (12/16/23 4:00 PM) Pulse Rate [55-90 bpm] 67 bpm (12/17/23:21 AM) 70 bpm (12/16/23 9:13 PM) 65 bpm (12/16/23 1:20 PM) Body Mass Index [18.5-24.99 kg/m2] 26.1 kg/m2 *H* (12/16/23:27 AM) 26.16 kg/m2 *H* (12/15/23 8:55 PM) Blood Pressure [90-138/55-84 mm Hg] 96/57mm Hg (12/17/23 6:21 AM) 103/76mm Hg (12/16/23 9:13 PM) 111/67mm Hg (12/16/23 1:20 PM) Respiratory Rate [16-30 br/min] 17 br/min (12/17/23 6:21 AM) 19 br/min (12/16/23 9:13 PM) 14 br/min *L* (12/16/23 1:20 PM) Temperature [96.8-100.4 DegF] 97.7 DegF (12/17/23 6:21 AM) 98.5 DegF (12/16/23 9:13 PM) 97.8 DegF (12/16/23 1:20 PM) Liters per Minute 2 L/min (12/16/23 4:00 PM) 2 L/min (12/16/23 4:41 AM) 2 L/min (12/16/23 1:26 AM) Mode of Delivery (Oxygen) Room air (12/17/23 6:21 AM) Room air (12/16/23 9:13 PM) Nasal cannula (12/16/23 4:00 PM) Blood pressure sites Arm, right (12/17/23 6:21 AM) Arm, right (12/16/23 9:13 PM) Arm, right (12/16/23 1:20 PM) Temperature Route Oral (12/17/23 6:21 AM) Oral (12/16/23 9:13 PM) Oral (12/16/23 1:20 PM) Dry Weight 78.3 kg (12/16/23 4:27 AM) 78.3 kg (12/15/23 8:55 PM) Weight Obtained Via Bed scale (12/16/23 4:27 AM) Standing scale (12/15/23 8:55 PM) Dry Weight Obtained Via Standing scale (12/15/23 8:55 PM) Social History Social History Type Response Smoking Status Never (less than 100 in lifetime) entered on: 04/15/22 Sex Admission evaluation note * Shun COLON, Evan: PERFORM Event Display: Admission Note Authored Date: Patient: ??CHAPINCITO STEELE ? Age:??53 Years?Sex:??Male?:??1970?? Chief Complaint/Reason for Consultation Elevated LFTs History of Present Illness The patient is a 53 years old male with past medical history alcoholic liver cirrhosis, alcohol usedisorder, anxiety with depression, nephrolithiasis presented to ER after found to have elevated LFTs on outpatient labs. ?? The patient reported that he had his regular appointment with his PCP yesterday??and today he received a call from patient preferred to go to the hospital because his LFTs were elevated. ?? The patient reported that he has chronic intermittent left flank pain due to kidney stone and is scheduled to see urology??on December 25.?? The patient denying??any nausea, vomiting, chest pain, shortness of breath. ??However, patient reports that??due to his poor appetite he has not been eating and dri nking much. ? Review of Systems All pertinent negative and positives are noted in HPI. ??All other systems were reviewed and are negative Objective Measurements?? Height: 173 cm (12/15/23) Weight: 78.3 kg (12/15/23) Dry Weight: 78.3 kg (12/15/23) Body Mass Index:??26.16 kg/m2??High (12/15/23) ? Vital Signs?? Temperature: 98.1 DegF (12/15/23 22:01:00) Temperature Route: Oral (12/15/23 22:01:00) Pulse Rate: 74 bpm (12/16/23:26:00) Respiratory Rate: 24 br/min (12/16/23:26:00) Systolic Blood Pressure: 117 mm Hg (12/16/23:26:00) Diastolic Blood Pressure: 72 mm Hg (12/16/23:26:00) Blood pressure sites: Arm, right (12/16/23:26:00) Mean Arterial Pressure: 78 mm Hg (12/15/23 20:55:00) Pulse Pressure: 45 mm Hg (12/16/23:26:00) Oxygen Saturation: 96 % (12/16/23:26:00) Liters per Minute: 2 L/min (12/16/23:26:00) Mode of Delivery (Oxygen): Nasal cannula (12/16/23:26:00) Early Warning Score: 9 (12/16/23 01:27:36) ? Physical Exam Constitutional: Alert, in no acute distress. Head: Normocephalic. ?? Eyes: Pupils are equal, round and reactive to light. Extraocular muscles intact. No pallor or scleral icterus ?? Ear, Nose and Throat: mucous membranes moist. Ears and nose - no obvious deformities. Trachea midline. ?? Neck: Supple, Full range of motion.No JVD or bruits. Respiratory:??Clear to auscultation. No wheezing or rhonchi.??No use of accessory muscles. No tactile fremitus.?? Cardiovascular:??PMI not visible. S1 S2 regular. No murmurs, rubs or gallops. Gastrointestinal:??Abdomen soft, non-tender, non-distended. Normal bowel sounds. No pulsatile mass.No hepatosplenomegaly. Genitourinary:??Left??costovertebral angle tenderness. Extremities: No lower extremity pitting edema. No cyanosis or clubbing. Neurologic:??AAOx3, Cranial nerves II-XII grossly intact. Speech normal, no facial droop. No focal neurological deficits. Moves all extremities spontaneously. Sensation intact bilaterally.??Flexor plantar response Skin:??No rash.?? Musculoskeletal:??No gross deformities on inspection. Normal range of motion in hips, knees, ankles. .??Muscle strength within normal limits Heme/Lymphatics:??Palpation of neck reveals no swelling or tenderness of neck nodes.?? Psychiatric: Normal mood and affect. Assessment/Plan Diagnoses 1. ??Acute kidney failure ??(N17.9) 2. ??Left flank pain ??(R10.9) 3. ??Transaminitis ??(R74.01) 4. ??Alcoholic cirrhosis of liver without ascites ??(K70.30) 5. ??Anxiety with depression ??(F41.8) 6. ??Alcohol use disorder ??(F10.90) ?? Assessment:??The patient is a 53 years old male who is admitted with KRISSY and transaminitis ?? Acute kidney failure (N17.9):??Etiology: Likely prerenal versus very less likely??HRS Patient sent to ER after he was found to have elevated LFTs, patient had diastolic liver cirrhosis Reports poor p.o. intake due to reduced appetite, patient also reported that he had a history of left kidney stone and has been having intermittent left flank pain Creatinine upon admission 1.6, it was??0.8??on labs done yesterday Patient also takes lisinopril at home Ultrasound of liver was done that showed cirrhotic liver without any evidence of ascites Ordered UA,??urine sodium Started patient on IV fluids Hold nephrotoxic medications Will trend creatinine with labs If creatinine does not improve with IV fluids, will consult nephrology for possibility of HRS ?? Left flank pain (R10.9):??Etiology: Due to underlying kidney stone Patient reports intermittent left flank pain Patient stated that he has left kidney stone for which he is supposed to follow- up with urology On physical exam, left CVA tenderness Ordered UA as well as CT abdomen ? Transaminitis (R74.01):??Etiology: Likely underlying??alcoholic liver??cirrhosis and alcohol hepatitis Patient had outpatient labs done yesterday and today he was called by his PCP office to go to the hospital for liver LFTs Patient does have history of chronic elevated LFTs, patient also history of alcoholic cirrhosis??and alcohol use disorder Patient last alcohol drink was about 2 weeks ago Labs: T. bili 2.3 with direct bilirubin 1.0, AST 354, ALT 439, ALP 118 (labs from yesterday showed T. bili of 2.5, AST 399, ALT 519) It appears LFTs are slowly trending down Madrey score is 17 Ultrasound of liver was done that showed cirrhotic liver without any suspicious lesions, normal CBD Hepatitis panel already ordered from the ER Will follow-up on repeat LFTs If LFTs do not trend down, will consult GI ?? Alcoholic cirrhosis of liver without ascites (K70.30):??MELD score 20 Labs show platelets 130, albumin 4.1, INR 1.4 On physical exam, patient does not have any ascites but does have asterixis Ordered ammonia level Patient not on any medication at home for liver cirrhosis Patient follows up with GI outpatient Recommend outpatient follow with GI ?? Anxiety with depression (F41.8):??Resume home bupropion and hydroxyzine ?? Alcohol use disorder (F10.90):??Currently in remission Patient last alcohol use was about 2 weeks ago Resume home medicine naltrexone, thiamine, folic acid ?? VTE Prophylaxis:??SCDs due to flutucating thrombocytopenia ?VTE Prophylaxis Assessment:??VTE Prophylaxis Ordered ?? Discharge Planning:??PENDING CLINICAL COURSE ?? Ongoing Medical Necessity:??KRISSY, TRANSAMINITIS ?? Code Status:??FULL CODE ?Order Code Status:??Code Status Ordered ? Date of service: December 16, 2023 Histories Allergies Allergies ?(Active and Proposed Allergies Only) No Known Medication Allergies? (Severity: Unknown severity, Onset: Unknown) Bee Stings? (Severity: Unknown severity, Onset: Unknown) ? Past Medical History/Problem List Active Problems(8) Alcohol dependence Alcoholic cirrhosis of liver without ascites Anxiety with depression COVID-19 Depression, major, recurrent, moderate Elevated liver enzymes Kidney stone Thrombocytopenia ? Past Surgical History Kidney stone removal ? Social History Alcohol Details:??Use: Current. ??Frequency: 3-5 times per week. ??Type: Liquor. ??Alcohol use in household: Yes. ??Other: Rum with a mixer. Employment/School Details:??Status: Unemployed. Exercise Details:??Self assessment: Fair condition. Home/Environment Details:??Living situation: Home/Independent. ??Lives with: Alone. Nutrition/Health Details:??Diet: Regular. Substance Abuse Details:??Use: Past. ??Type: Marijuana. Tobacco Details:??Use: Never (less than 100 in lifetime). Electronic Cigarette/Vaping Details:??Electronic Cigarette Use: Never. ? Family History Father: Diabetes mellitus Pat. Grandmother: Diabetes mellitus Pat. Grandfather: Cancer of lung ? Medications Home Medications BuPROpion (buPROPion 300 mg/24 hours (XL) oral tablet, extended release)?1?tab(s)?By Mouth?Daily Folic Acid (folic acid 1 mg oral tablet)?1?tablet?By Mouth?Daily HydrOXYzine (hydrOXYzine hydrochloride 10 mg oral tablet)?1?tab(s)?By Mouth?3 times a day?as needed? NEEDED FOR ANXIETY Lisinopril (lisinopril 5 mg oral tablet)?5?Milligram?1?tablet?By Mouth?Daily Naltrexone (naltrexone 50 mg oral tablet)?1?tab(s)?50?Milligram?By Mouth?Daily Pyridoxine (Vitamin B6 50 mg oral tablet)?1?tablet?By Mouth?Daily Thiamine (Vitamin B1 100 mg oral tablet)?1?tablet?By Mouth?Daily ? Results Recent Labs BLOOD COUNT & DIFF WBC 8.5 k/mm3 ()?? 12/15/2023 22:42 RBC 4.77 m/mm3 ()?? 12/15/2023 22:42 Hgb 15.8 Gm/dL ()?? 12/15/2023 22:42 Hct 46.4 % ()?? 12/15/2023 22:42 MCV 97.3 femtoliters (High)?? 12/15/2023 22:42 MCH 33.1 pg ()?? 12/15/2023 22:42 MCHC 34.1 g/dL ()?? 12/15/2023 22:42 Platelet Count 130 k/mm3 (Low)?? 12/15/2023 22:42 RDW-SD 44.1 femtoliters ()?? 12/15/2023 22:42 MPV 11.4 femtoliters ()?? 12/15/2023 22:42 Nucleated RBC (Automated) 0.0 #/100 WBC'S ()?? 12/15/2023 22:42 Abs. NRBC 0.0 k/mm3 ()?? 12/15/2023 22:42 Abs. Neut 5.6 k/mm3 ()?? 12/15/2023 22:42 Abs. Lymph 1.7 k/mm3 ()?? 12/15/2023 22:42 Abs. [place] 0.8 k/mm3 ()?? 12/15/2023 22:42 Abs. Eo 0.3 k/mm3 ()?? 12/15/2023 22:42 Abs. Baso 0.1 k/mm3 ()?? 12/15/2023 22:42 Neut % 65.7 % ()?? 12/15/2023 22:42 Lymph % 20.2 % ()?? 12/15/2023 22:42 [place] % 9.7 % ()?? 12/15/2023 22:42 Eos % 3.1 % ()?? 12/15/2023 22:42 Baso % 0.9 % ()?? 12/15/2023 22:42 Imm Gran 0.4 % ()?? 12/15/2023 22:42 Abs. Imm Gran 0.0 k/mm3 ()?? 12/15/2023 22:42 ?? CARDIAC Nt-Probnp <36 pg/mL ()?? 12/15/2023 22:42 High Sensitivity Troponin (HSTnT) 11 ng/L ()?? 12/15/2023 22:42 ?? CHEM GENERAL Sodium 134 mmol/L ()?? 12/15/2023 22:42 Potassium 4.6 mmol/L ()?? 12/15/2023 22:42 Chloride 97 mmol/L (Low)?? 12/15/2023 22:42 Bicarbonate Level 26 mmol/L ()?? 12/15/2023 22:42 Anion Gap 11 ()?? 12/15/2023 22:42 Glucose Level 83 mg/dL ()?? 12/15/2023 22:42 BUN 9 mg/dL (Normal)?? 12/14/2023 16:05 BUN 18 mg/dL ()?? 12/15/2023 22:42 Creatinine-Blood 1.6 mg/dL (High)?? 12/15/2023 22:42 Estimated GFR Creatinine 51 ML/MIN/1.73 M2 ()?? 12/15/2023 22:42 Calcium 9.3 mg/dL ()?? 12/15/2023 22:42 Protein, Total 7.1 Gm/dL ()?? 12/15/2023 22:42 Albumin 4.1 Gm/dL ()?? 12/15/2023 22:42 AG Ratio 1.4 ()?? 12/15/2023 22:42 Alkaline Phosphatase 118 units/L ()?? 12/15/2023 22:42 Lipase 80 units/L (High)?? 12/15/2023 22:42 AST (SGOT) 354 units/L (High)?? 12/15/2023 22:42 ALT (SGPT) 439 units/L (High)?? 12/15/2023 22:42 Bilirubin, Total 2.3 mg/dL (High)?? 12/15/2023 22:42 Bilirubin, Direct 1.0 mg/dL (High)?? 12/15/2023 22:42 Bilirubin, Indirect 1.3 mg/dL (High)?? 12/15/2023 22:42 Globulin Total 3.7 g/dL (Normal)?? 12/14/2023 16:05 BUN/Creat Ratio 10 (Normal)?? 12/14/2023 16:05 ?? COAG INR 1.4 (High)?? 12/15/2023 22:42 Protime (PT) 14.7 seconds (High)?? 12/15/2023 22:42 ?? URINE OTHER Est Creatinine Clearance 50.66 mL/min ()?? 12/15/2023 23:51 ? Coagulation Profile INR:??1.4??High (22:42) Protime (PT):??14.7 seconds??High (22:42) ?? * Avery Gan DO: PERFORM Event Display: Admission Note Authored Date: admitted this morning, fortunately labs are improving nicely. hep panel appears negative. will monitor for 1 more day and anticipate dc home tomorrow if continued improvement. EKG study * Event Display: ECG 12-Lead Authored Date: Please click on pdf link to open report * Event Display: ECG 12-Lead Authored Date: Ventricular Rate: 74 BPM Atrial Rate: 74 BPM P-R Interval: 188 ms QRS Duration: 88 ms Q-T Interval: 388 ms QTC Calculation(Bazett): 430 ms P [place]: 8 degrees R [place]: -20 degrees T [place]: -3 degrees Normal sinus rhythm Poor R wave progression Borderline ECG When compared with ECG of 02-SEP-2022 17:48, No significant change was found Confirmed by BROOKLYNN COLON, [facility] ([id number]) on 12/16/2023 7:52:36 AM [place] * Darlene Naqvi RN: PERFORM, SIGN, VERIFY Event Display: [facility] Authored Date: Patient: CHAPINCITO STEELE Age: 53 years Sex: Male : 1970 Associated Diagnoses: None Author: Darlene Naqvi RN Findings Problem Related to Alteration in Gastrointestinal : Alteration in Gastrointestinal Func/new 12/17/2023 10:00 EDT Alteration in GI status Related to Other: elevated LFTs Goals & Outcomes, Gastrointestinal Resolved problem, Goals/Outcomes met Interventions, Gastrointestinal Resolved problem, Interventions no longer in effect Goals/Interventions, Gastrointestinal Yes Gastrointestinal, Problem Start 12/17/2023 10:01 Reviewed plan with, Gastrointestinal Patient Patient Progression, Gastrointestinal Resolved problem Gastrointestinal, Problem Resolved 12/17/2023 10:01 . Nursing Data Vital Signs : VITAL SIGNS SECTION 12/17/2023 6:21 EDT Temperature 97.7 DegF Temperature Route Oral Pulse Rate 67 bpm Respiratory Rate 17 br/min Systolic Blood Pressure 96 mm Hg Diastolic Blood Pressure 57 mm Hg Blood pressure sites Arm, right Mean Arterial Pressure 70 mm Hg Pulse Pressure 39 mm Hg Oxygen Saturation 94 % Mode of Delivery (Oxygen) Room air . Narrative/Incidental Patient is A&Ox4. Denied pain, shortness of breath or difficulty breathing. On room air. Abdomen soft, non-tender. Ambulating independently in the room. Patient is being discharged home today. Safety precautions maintained and frequent rounding being done.. * Nabila Blanton RN: PERFORM, SIGN, VERIFY Event Display: Progress Note Hospital Authored Date: Patient: CHAPINCITO STEELE Age: 53 years Sex: Male : 1970 Associated Diagnoses: None Author: Nabila Blanton RN Findings Problem Related to Alteration in Fluid Electrolyte : Alteration in Fluid Electrolyte Func/new 12/16/2023 16:00 EDT Alteration Fluid Electrolytes Related to Other: elevated LFT's Goals & Outcomes, Fluid/Electrolyte Vital signs, electrolytes & glucose levels will stabilize, Pt will resume/maintain adequate hemodynamic status, Pt will state importance of adhering to medication regime Interventions, Fluid Electrolyte monitor dietary intake, monitor for s/s of anemia: weakness, fatigue,, monitor GI/ status, monitor hydration status, monitor mucous membranes, monitor peripheral pulses, monitor skin turgor, temperature & capillary refill, Encourage oral intake of meals, snacks, supplements, Encourage oral intake/fluids as ordered Goals/Interventions,Fluid Electrolyte Yes Fluid Electrolyte, Problem Start 12/16/2023 5:06 Reviewed plan with, Fluid Electrolyte Patient Patient Progression, Fluid Electrolyte Pt progressing according to plan . Narrative/Incidental Pt is alert and oriented x4, no pain present. Has IV access. Pt was feeling anxious, PRN meds given. Is on 2L NC. Tolerated meds w no issues. Pt is safe and comfortable, tolerating diet well. Pt is safe and comfortable, all needs met at this time. Call de la cruz within reach. . * Bridgett Barger LPN: PERFORM, SIGN, VERIFY Event Display: Progress Note Hospital Authored Date: Patient: CHAPINCITO STEELE Age: 53 years Sex: Male : 1970 Associated Diagnoses: None Author: Bridgett Barger LPN Findings Problem Related to Alteration in Fluid Electrolyte : Alteration in Fluid Electrolyte Func/new 12/16/2023 5:00 EDT Alteration Fluid Electrolytes Related to Other: elevated LFT's Goals & Outcomes, Fluid/Electrolyte Vital signs, electrolytes & glucose levels will stabilize, Pt will resume/maintain adequate hemodynamic status, Pt will state importance of adhering to medication regime Interventions, Fluid Electrolyte monitor effects of intravenous fluid, monitor for s/s of anemia: weakness, fatigue,, monitor for s/s of hyper/hypokalemia, monitor for s/s of hypo or hyperglycemia, monitor GI/ status, monitor hydration status, monitor peripheral pulses, monitor skin turgor, temperature & capillary refill BH Goals/Interventions,Fluid Electrolyte Yes Fluid Electrolyte, Problem Start 12/16/2023 5:06 Reviewed plan with, Fluid Electrolyte Patient Patient Progression, Fluid Electrolyte Plan Initiation . Evaluation P: Alteration in fluid/eletrolyte fx I: According to plan of care E: Pt arrived to the unit about 0430- alert and oriented x4, VSS, pain 6/10 to lower and mid back, APAP 650mg given per orders, LS CTA with no s/sx resp distress- 2L via NC on arrival O2 at 95%, +BS x4 with abdomen flat, soft and non tender, skin CDI with some dry areas to bilateral feet, oriented to call de la cruz, encouraged to ring for assisstance. . Note * Darlene Naqvi RN: PERFORM Event Display: Discharge/Transfer Note Hospital Authored Date: Nursing Discharge Note Entered On: 12/17/2023 11:01 EDT Performed On: 12/17/2023 11:00 EDT by Darlene Naqvi RN Nursing Discharge Note 2 Discharge Time : 12/17/2023 11:00 EDT Discharge Level of Care at Discharge : Home/Custodial/Foster Care Patient Left Unit Via : Wheelchair Patient Accompanied Off Unit with : Responsible adult DC Instructions Provided & Signed by Pt : Yes Patient Understands D/C Instructions : Yes Patient Instructions Discharge Signed : Yes Discharge Comments : Patient A&Ox4. Discharge instructions reviewed and signed. Patient left unit with transport in wheelchair to [facility]. Did Pt have Specialty Bed or Wound Vac : No Darlene Naqvi RN - 12/17/2023 11:00 EDT * Avery Gan DO: PERFORM Event Display: Discharge/Transfer Note Hospital Authored Date: [id number] Patient: ??CHAPINCITO STEELE ? Age:??53 Years?Sex:??Male?:??1970?? Patient Information Discharge Location: [facility] Primary Care Physician: Johnathan Claudio NP, Bernie Green Admit Date/Time: 12/16/23 00:30 Discharge Date:??12/17/2023 09:58 Discharge Disposition Discharge Disposition: Home: No Services Discharge Diagnosis Acute kidney failure (N17.9) Left flank pain (R10.9) Transaminitis (R74.01) Alcoholic cirrhosis of liver without ascites (K70.30) Anxiety with depression (F41.8) Alcohol use disorder (F10.90) _ Discharge Medications BuPROpion (buPROPion 300 mg/24 hours (XL) oral tablet, extended release)?1?tab(s)?By Mouth?Daily Folic Acid (folic acid 1 mg oral tablet)?1?tablet?By Mouth?Daily HydrOXYzine (hydrOXYzine hydrochloride 10 mg oral tablet)?1?tab(s)?By Mouth?3 times a day?as needed? NEEDED FOR ANXIETY Naltrexone (naltrexone 50 mg oral tablet)?1?tab(s)?50?Milligram?By Mouth?Daily Pyridoxine (Vitamin B6 50 mg oral tablet)?1?tablet?By Mouth?Daily Thiamine (Vitamin B1 100 mg oral tablet)?1?tablet?By Mouth?Daily ? Medications Started none Medications Discontinued lisinopril Doses Changed none PCP Follow-Up/Heads-Up f.u LFTs next week Future Appointments Tuesday 1:15 PM EDT ?? With: Nicko TYPING CHECKER, Lg Wilsontayajaira Where: [facility] [address] [place] [address]- Status: Pending Tuesday 1:20 PM EDT ?? With: Johnathan Claudio TYPING CHECKER, Bernie Green Where: [facility] [address] [place] [address]- Status: Pending Hospital Course 53 years old male who is admitted with KRISSY and transaminitis ?? Acute kidney failure (N17.9):??resolved , prerenal improved with iv hydration dc'ed lisinopril as bps have been soft UA wnl ? Left flank pain (R10.9):?? Patient reports intermittent left flank pain CT abdomen shows Left lower pole 1.2 cm nonobstructing calculus. OP f/u urology ? Transaminitis (R74.01):??Etiology: Likely underlying??alcoholic liver??cirrhosis and acute hypotension 2/2 dehydration labs improving US RUQ wnl Patient does have history of chronic elevated LFTs, patient also history of alcoholic cirrhosis??and alcohol use disorder Patient last alcohol drink was about 2 weeks ago hepatitis viral panel negative encouraged sobriety f/u LFTs next week ensure adequate hydration ?? Alcoholic cirrhosis of liver without ascites (K70.30):?? Patient not on any medication at home for liver cirrhosis Recommend outpatient follow with GI ? Alcohol use disorder (F10.90):??Currently in remission Patient last alcohol use was about 2 weeks ago c/w ??home medicine naltrexone, thiamine, folic acid Objective Vital Signs?? Temperature: 97.7 DegF (12/17/23 06:21:00) Temperature Route: Oral (12/17/23 06:21:00) Pulse Rate: 67 bpm (12/17/23 06:21:00) Respiratory Rate: 17 br/min (12/17/23 06:21:00) Systolic Blood Pressure: 96 mm Hg (12/17/23 06:21:00) Diastolic Blood Pressure: 57 mm Hg (12/17/23 06:21:00) Blood pressure sites: Arm, right (12/17/23 06:21:00) Mean Arterial Pressure: 70 mm Hg (12/17/23 06:21:00) Pulse Pressure: 39 mm Hg (12/17/23 06:21:00) Oxygen Saturation: 94 % (12/17/23 06:21:00) Liters per Minute: 2 L/min (12/16/23 16:00:00) Mode of Delivery (Oxygen): Room air (12/17/23 06:21:00) Early Warning Score: 8 (12/17/23 08:26:59) ? . Physical Exam General:??NAD Head:??NCAT Eyes:??EOMI Ear, Nose and Throat:??MMM Respiratory:??CTA Cardiovascular:RRR Gastrointestinal:??soft nt nd Neurologic :alert and orientedx3 ?? Pending Results Add On Lab Order ordered on 12/17/2023 Anti-HAV IgG ordered on 12/15/2023 Urinalysis w/hold for Urine Culture ordered on 12/15/2023 Follow-Up Appointments Added Follow Up ?Time Frame ?Comments Johnathan Claudio TYPING CHECKER, Bernie Green Post Discharge Care Discharge ?12/17/23 9:56:00 EDT Home Health Face to Face ^HomeHealthFTF Results Discharge Labs BLOOD COUNT & DIFF WBC 6.2 k/mm3 ()?? 12/16/2023 04:40 RBC 4.26 m/mm3 (Low)?? 12/16/2023 04:40 Hgb 13.8 Gm/dL ()?? 12/16/2023 04:40 Hct 41.3 % ()?? 12/16/2023 04:40 MCV 96.9 femtoliters (High)?? 12/16/2023 04:40 MCH 32.4 pg ()?? 12/16/2023 04:40 MCHC 33.4 g/dL ()?? 12/16/2023 04:40 Platelet Count 100 k/mm3 (Low)?? 12/16/2023 04:40 RDW-SD 43.7 femtoliters ()?? 12/16/2023 04:40 MPV 11.3 femtoliters ()?? 12/16/2023 04:40 Nucleated RBC (Automated) 0.0 #/100 WBC'S ()?? 12/16/2023 04:40 Abs. NRBC 0.0 k/mm3 ()?? 12/16/2023 04:40 Abs. Neut 5.6 k/mm3 ()?? 12/15/2023 22:42 Abs. Lymph 1.7 k/mm3 ()?? 12/15/2023 22:42 Abs. [place] 0.8 k/mm3 ()?? 12/15/2023 22:42 Abs. Eo 0.3 k/mm3 ()?? 12/15/2023 22:42 Abs. Baso 0.1 k/mm3 ()?? 12/15/2023 22:42 Neut % 65.7 % ()?? 12/15/2023 22:42 Lymph % 20.2 % ()?? 12/15/2023 22:42 [place] % 9.7 % ()?? 12/15/2023 22:42 Eos % 3.1 % ()?? 12/15/2023 22:42 Baso % 0.9 % ()?? 12/15/2023 22:42 Imm Gran 0.4 % ()?? 12/15/2023 22:42 Abs. Imm Gran 0.0 k/mm3 ()?? 12/15/2023 22:42 ?? CARDIAC Nt-Probnp <36 pg/mL ()?? 12/15/2023 22:42 High Sensitivity Troponin (HSTnT) 11 ng/L ()?? 12/15/2023 22:42 ?? CHEM GENERAL Sodium 137 mmol/L ()?? 12/17/2023 00:26 Potassium 4.2 mmol/L ()?? 12/17/2023 00:26 Chloride 100 mmol/L ()?? 12/17/2023 00:26 Bicarbonate Level 25 mmol/L ()?? 12/17/2023 00:26 Anion Gap 12 ()?? 12/17/2023 00:26 Glucose Level 78 mg/dL ()?? 12/16/2023 04:40 BUN 15 mg/dL ()?? 12/17/2023 00:26 Creatinine-Blood 0.9 mg/dL ()?? 12/17/2023 00:26 Estimated GFR Creatinine 100 ML/MIN/1.73 M2 ()?? 12/17/2023 00:26 Calcium 8.6 mg/dL ()?? 12/16/2023 04:40 Magnesium 1.1 mg/dL (Low)?? 12/16/2023 04:40 Protein, Total 6.9 Gm/dL ()?? 12/17/2023 00:26 Albumin 3.6 Gm/dL ()?? 12/17/2023 00:26 AG Ratio 1.1 ()?? 12/16/2023 04:40 Alkaline Phosphatase 116 units/L ()?? 12/17/2023 00:26 Lipase 80 units/L (High)?? 12/15/2023 22:42 AST (SGOT) 273 units/L (High)?? 12/17/2023 00:26 ALT (SGPT) 351 units/L (High)?? 12/17/2023 00:26 Bilirubin, Total 1.6 mg/dL (High)?? 12/17/2023 00:26 Bilirubin, Direct 0.7 mg/dL (High)?? 12/17/2023 00:26 Bilirubin, Indirect 0.9 mg/dL (High)?? 12/17/2023 00:26 ? COAG INR 1.4 (High)?? 12/15/2023 22:42 Protime (PT) 14.7 seconds (High)?? 12/15/2023 22:42 ?? HEME OTHER Hold Lavender Top SPECIMEN DISCARDED AFTER 24 HOURS. ()?? 12/16/2023 07:53 ? MISC. CHEMISTRY Ammonia, Venous 38 ??mole/L ()?? 12/16/2023 04:39 ? SEROLOGY INF DISEASE Hepatitis B Surface Antigen NON REACTIVE ()?? 12/15/2023 22:42 Hepatitis B Core Ab, Total NON REACTIVE ()?? 12/15/2023 22:42 Hepatitis C Ab NON REACTIVE ()?? 12/15/2023 22:42 Anti-HBS Quant <3.50 mIU/mL (Low)?? 12/15/2023 22:42 ?? UA/URINALYSIS Appear/Color, Urine YELLOW ()?? 12/16/2023 01:29 Specific [place], Urine 1.012 ()?? 12/16/2023 01:29 pH, Urine 6.0 ()?? 12/16/2023 01:29 Albumin, Urine TRACE (Abnormal)?? 12/16/2023 01:29 Glucose, Urine NEGATIVE ()?? 12/16/2023 01:29 Ketones, Urine NEGATIVE ()?? 12/16/2023 01:29 Bilirubin, Urine NEGATIVE ()?? 12/16/2023 01:29 Hemoglobin, Urine NEGATIVE ()?? 12/16/2023 01:29 Nitrite, Urine NEGATIVE ()?? 12/16/2023 01:29 Leukocyte, Urine NEGATIVE ()?? 12/16/2023 01:29 Urobilinogen NORMAL mg/dL ()?? 12/16/2023 01:29 WBC's, Urine <1 /HPF ()?? 12/16/2023 01:29 RBC's, Urine 2 /HPF ()?? 12/16/2023 01:29 Bacteria SLIGHT HPF (Abnormal)?? 12/16/2023 01:29 Hyaline Cast 1 LPF ()?? 12/16/2023 01:29 Amorphous Crystals SLIGHT /HPF ()?? 12/16/2023 01:29 Mucus SLIGHT /LPF ()?? 12/16/2023 01:29 Hold Urine Culture Testing available 48 hours from time of collection. ()?? 12/16/2023 01:29 ?? URINE OTHER Sodium, Urine Random 45 mmol/L ()?? 12/16/2023 01:29 Protein, Total Urine Random 14 mg/dL ()?? 12/16/2023 01:29 TP/Cr Ratio 0.11 ()?? 12/16/2023 01:29 Creatinine, Urine 127.7 mg/dL ()?? 12/16/2023 01:29 Est Creatinine Clearance 90.05 mL/min ()?? 12/17/2023 02:18 ? VIROLOGY COVID-19 by RT-PCR NEGATIVE ()?? 12/16/2023 01:03 ? Microbiology ?? COVID-19 (Novel Coronavirus), Rapid PCR?? Completed?? Source: Nasal Body Site: Nose Collected Dt/Tm: 12/16/2023 00:38 Last Updated Dt/Tm: 12/16/2023 03:02 ? 35_ minutes spent on discharge * Darlene Naqvi RN: PERFORM Event Display: Patient Education/Instruction Authored Date: [id number] Inpatient Adult Discharge Instructions. [place] [id number] Name: CHAPINCITO STEELE : 1970?? Visit: 12/16/2023 00:30?? Current Date: 12/17/2023 10:15 ?? Account: [id number]?? Inpatient Adult Discharge Instructions We would like [...] and their families. Surveys are administered by [employer] ?? If further treatment with your primary care physician or another doctor is recommended, it is important for you to keep the appointment. Call your primary care physician or return to the Emergency Department immediately if your condition worsens, fails to improve, or new symptoms develop. If you need to find a doctor, you can call [facility] for a referral at [phone] or toll free at [phone] or log in to [email or web address].. ?? [facility], in keeping with [facility] guidance, no longer requires face masks for [...] a health care sai of your choosing. [employer] is a website that allows you to securely view your medical information including your hospital discharge summary, office visit summaries, medications and follow-up visits. You can also request appointments, renew medications, and request access to your medical information using a health care sai of your choosing, or just ask a question. You can enroll at [email or web address] or register during your next office visit. You have been discharged from [facility], Patient Care Unit: [address]64??. If you have any questions regarding these instructions, including results of studies pending, afteryou leave, please call us and we will be happy to assist you 07/03. [facility] Your Care Team Attending Physician Malik DO, Suchismita S?? Consulting Providers Malik DO, Suchismita S?? Discharging Providers Malik DO, Piloismita S Reason for Your Visit KRISSY, worsening liver function?? Your Diagnosis Acute kidney failure Left flank pain Transaminitis Alcoholic cirrhosis of liver without ascites Anxiety with depression Alcohol use disorder Tests Performed Below is a partial list of the tests performed during your hospitalization. You may have had other tests and procedures not included in this list. Please discuss all test results with your provider. Ammonia Venous ANTI HEP B CORE ANTI-HBS QUANT ANTI-HEPATITIS C Bilirubin Total + Direct BUN CBC CBC w/ Differential Comprehensive Metabolic Panel COVID-19 (Novel Coronavirus), Rapid PCR Creatinine Electrolytes HEP. B SURF. AG HEPATIC FUNCTION PANEL High??Sensitivity??Troponin T HOLD LAVENDER TUBE HOLD URINE CULTURE INR LFT's Lipase Magnesium Level ProBNP Protein/Creatinine Ratio Urine UA Urinalysis w/hold for Urine Culture?-- Results Pending -- Urine Sodium CT Abdomen and Pelvis W/O Contrast US Liver XR Chest Portable You will be contacted within 72 hours with your results. Add On Lab Order?? Anti-HAV IgG?? Urinalysis w/hold for Urine Culture?? Primary Care Provider Johnathan Claudio NP, Bernie Green? Advance Directive Health Care Proxy on File Yes - Health Care Proxy Discharge Vitals Temperature: 97.7 DegF Height: 173 cm Pulse Rate: 67 bpm Weight: 78.1 kg Respiratory Rate: 17 br/min Body Mass Index:??26.1 kg/m2??High Systolic Blood Pressure: 96 mm Hg Body surface area: 1.94 Diastolic Blood Pressure: 57 mm Hg ?? Oxygen Saturation: 94 % ?? Studies Pending All studies ordered during this hospital stay have been completed unless listed below. Please discuss all pending results with your provider listed above in these instructions. ?? Add On Lab Order?? Anti-HAV IgG?? Urinalysis w/hold for Urine Culture?? What to do next Instructions From Your Doctor ?? Orders? 12/17/23 9:56:00 EDT?? Scheduled Follow-Up Appointments Tuesday 1:15 PM EDT ?? With: Nicko ALBERT, Lg Khan Where: [facility] [address] [place] [address]- Status: Pending Tuesday 1:20 PM EDT ?? With: Bernie Duffy NP Where: [facility] [address] [place] [address]- Status: Pending You Need to Schedule the Following Appointments Follow Up with??Bernie Duffy NP Where: ?? Discharge Medications CHAPINCITO STEELE :1970 Visit Date:12/16/2023 Medications: Please continue your medications until treatment is completed or stopped by your provider. Medications not listed below should be discontinued. Discuss any questions related to medications with your provider. What How Much When Instructions Next Dose Unchanged BuPROpion (buPROPion 300 mg/ 24 hours (XL) oraltablet, extended release) 1 tab(s) Oral Daily tomorrow, 12/18/2023 Unchanged Folic Acid (folic acid 1 mg oral tablet) 1 tab(s) Oral Daily tomorrow, 12/18/2023 Unchanged HydrOXYzine (hydrOXYzine hydrochloride 10 mg oral tablet) 1 tab(s) Oral 3 times a day as needed for NEEDED FOR ANXIETY as needed Unchanged Naltrexone (naltrexone 50 mg oral tablet) 1 tab(s) Oral Daily tomorrow, 12/18/2023 Unchanged Pyridoxine (Vitamin B6 50 mg oral tablet) 1 tab(s) Oral Daily tomorrow, 12/18/2023 Unchanged Thiamine (Vitamin B1 100 mg oral tablet) 1 tab(s) Oral Daily tomorrow, 12/18/2023 ?? What How Much When Why Comments Stop Taking Acetaminophen / Hydrocodone (acetaminophen-HYDROcodone 325 mg-5 mg oral tablet) 1 tab(s) Oral Every 4 hours as needed for for pain Stop Taking diphenhydrAMINE-ibuprofen (Advil PM Liqui-Gels 25 mg-200 mg oral capsule) 2 capsule Oral Daily at Bedtime as needed for for insomnia Stop Taking Lisinopril (lisinopril 5 mg oral tablet) 1 tab(s) Oral Daily Hypertension Stop Taking Multivitamin (Daily Allen oral tablet) TAKE 1 TABLET BY MOUTH EVERY DAY ?? Stop Taking Multivitamin (multivitamin Therapeutic Multiple Vitamins oral tablet) 1 tab(s) Oral Daily Stop Taking PEG Electrolyte Solution (NuLYTELY [place] oral powder for reconstitution) 240 Milliliter Oral Daily until 4 liters are consumed or the rectal effluent is clear, follow prep instructions ?? Prescription Given During Visit No new medications prescribed at time of discharge.?? Laboratory Results Below is a partial list of the most recent Laboratory test results done prior to this discharge. You may have had other tests and procedures not included in this list. Please discuss all test resultswith your provider. Est Creatinine Clearance - 90.05 mL/min (12/17/2023) Ammonia Venous (12/16/2023) ???Ammonia, Venous - 38 ??mole/L ANTI HEP B CORE (12/15/2023) ???Hepatitis B Core Ab, Total - NON REACTIVE ANTI-HBS QUANT (12/15/2023) ? ?Anti-HBS Quant - <3.50 mIU/mL ANTI-HEPATITIS C (12/15/2023) ???Hepatitis C Ab - NON REACTIVE Bilirubin Total + Direct (12/15/2023) ???Bilirubin, Total - 2.3 mg/dL???Bilirubin, Direct - 1.0 mg/dL???Bilirubin, Indirect - 1.3 mg/dL BUN (12/17/2023) ???BUN - 15 mg/dL CBC (12/16/2023) ???WBC - 6.2 k/mm3???RBC - 4.26 m/mm3???Hgb - 13.8 Gm/dL???Hct - 41.3 %???MCV - 96.9 femtoliters???MCH - 32.4 pg???MCHC - 33.4 g/dL???Platelet Count - 100 k/mm3???RDW-SD - 43.7 femtoliters???MPV - 11.3 femtoliters???Nucleated RBC (Automated) - 0.0 #/100 WBC'S???Abs. NRBC - 0.0 k/mm3 CBC w/ Differential (12/15/2023) ???WBC - 8.5 k/mm3???RBC - 4.77 m/mm3???Hgb - 15.8 Gm/dL???Hct - 46.4 %???MCV - 97.3 femtoliters???MCH - 33.1 pg???MCHC - 34.1 g/dL???Platelet Count - 130 k/mm3???RDW-SD - 44.1 femtoliters???MPV - 11.4 femtoliters???Nucleated RBC (Automated) - 0.0 #/100 WBC'S???Abs. NRBC - 0.0 k/mm3???Abs. Neut - 5.6 k/mm3???Abs. Lymph - 1.7 k/mm3???Abs. [place] - 0.8 k/mm3???Abs. Eo - 0.3 k/mm3???Abs. Baso - 0.1 k/mm3???Neut % - 65.7 %???Lymph % - 20.2 %???[place] % - 9.7 %???Eos % - 3.1 %???Baso % - 0.9 %???Imm Gran - 0.4 %???Abs. Imm Gran - 0.0 k/mm3 Comprehensive Metabolic Panel (12/16/2023) ???Sodium - 137 mmol/L???Potassium - 4.2 mmol/L???Chloride - 100 mmol/L???Bicarbonate Level - 24 mmol/L???Anion Gap - 13???Glucose Level - 78 mg/dL???BUN - 19 mg/dL???Creatinine-Blood - 1.2 mg/dL???Estimated GFR Creatinine - 69 ML/MIN/1.73 M2???Calcium - 8.6 mg/dL???Protein, Total - 6.3 Gm/dL???Albumin - 3.3 Gm/dL???AG Ratio - 1.1???Alkaline Phosphatase - 107 units/L???AST (SGOT) - 284 units/L???ALT (SGPT) - 379 units/L???Bilirubin, Total - 1.7 mg/dL COVID-19 (Novel Coronavirus), Rapid PCR (12/16/2023) ???COVID-19 by RT-PCR - NEGATIVE Creatinine (12/17/2023) ???Creatinine-Blood - 0.9 mg/dL???Estimated GFR Creatinine - 100 ML/MIN/1.73 M2 Electrolytes (12/17/2023) ???Sodium - 137 mmol/L???Potassium - 4.2 mmol/L???Chloride - 100 mmol/L???Bicarbonate Level - 25 mmol/L???Anion Gap - 12 HEP. B SURF. AG (12/15/2023) ???Hepatitis B Surface Antigen - NON REACTIVE HEPATIC FUNCTION PANEL (12/17/2023) ???Protein, Total - 6.9 Gm/dL???Albumin - 3.6 Gm/dL???Alkaline Phosphatase - 116 units/L???AST (SGOT) - 273 units/L???ALT (SGPT) - 351 units/L???Bilirubin, Total - 1.6 mg/dL???Bilirubin, Direct - 0.7mg/dL???Bilirubin, Indirect - 0.9 mg/dL High??Sensitivity??Troponin T (12/15/2023) ???High Sensitivity Troponin (HSTnT) - 11 ng/L HOLD LAVENDER TUBE (12/16/2023) ???Hold Lavender Top - SPECIMEN DISCARDED AFTER 24 HOURS. HOLD URINE CULTURE (12/16/2023) ???Hold Urine Culture - Testing available 48 hours from time of collection. INR (12/15/2023) ???INR - 1.4???Protime (PT) - 14.7 seconds LFT's (12/16/2023) ???Protein, Total - 6.5 Gm/dL???Albumin - 3.4 Gm/dL???Alkaline Phosphatase - 109 units/L???AST (SGOT) - 289 units/L???ALT (SGPT) - 381 units/L???Bilirubin, Total - 2.0 mg/dL???Bilirubin, Direct - 0.9mg/dL???Bilirubin, Indirect - 1.1 mg/dL Lipase (12/15/2023) ???Lipase - 80 units/L Magnesium Level (12/16/2023) ???Magnesium - 1.1 mg/dL ProBNP (12/15/2023) ? ?Nt-Probnp - <36 pg/mL Protein/Creatinine Ratio Urine (12/16/2023) ???Protein, Total Urine Random - 14 mg/dL???TP/Cr Ratio - 0.11???Creatinine, Urine - 127.7 mg/dL UA (12/16/2023) ???Appear/Color, Urine - YELLOW???Specific [place], Urine - 1.012???pH, Urine - 6.0???Albumin, Urine - TRACE???Glucose, Urine - NEGATIVE???Ketones, Urine - NEGATIVE???Bilirubin, Urine - NEGATIVE???Hemoglobin, Urine - NEGATIVE???Nitrite, Urine - NEGATIVE???Leukocyte, Urine - NEGATIVE???Urobilinogen - NORMAL? ?WBC's, Urine - <1 /HPF? ?RBC's, Urine - 2 /HPF? ?Bacteria - SLIGHT? ?Hyaline Cast - 1 LPF???Amorphous Crystals - SLIGHT???Mucus - SLIGHT Urine Sodium (12/16/2023) ???Sodium, Urine Random - 45 mmol/L Allergies (NKA means No Known Allergies) Bee Stings No Known Medication Allergies Problems Active Problems??(8) Alcohol dependence?? Alcoholic cirrhosis of liver without ascites?? Anxiety with depression?? COVID-19?? Depression, major, recurrent, moderate?? Elevated liver enzymes?? Kidney stone?? Thrombocytopenia?? Education Materials Below is the list of Educational Leaflet Providered with your Discharge Instructions. Valuables and Belongings I fully understand and agree that [facility] accepts no responsibility for all my personal [...] ?? Date for Pt to Sign Valuables/Belongings: 12/16/23 04:46:00 ?? Other Discharge Information ? Pulmonary Rehab Status?? Pulmonary Rehab Discharge Status?? Respiratory Rate: 17 br/min ? Common Emergency Awareness Tips IS [...] are strongly encouraged to quit. Please call [facility] Link at [phone] or [phone]) or log in to [email or web address] for referrals to smoking cessation programs. ?? 257 Suicide & Crisis Lifeline is available 07/03 if you or someone you know needs to find a reason to keep living. By calling 368 you'll be connected to a skilled, trained counselor at a crisis center in your area. INPATIENT DISCHARGE INSTRUCTIONS SIGNATURE PAGE IVETTEANGELKRISTIAN Location:[facility] Registration Date and Time:12/16/2023 00:30 EDT Primary Care Physician: Johnathan Claudio NP, Bernie Green, Attending Physician: Avery Gan DO, I CHAPINCITO STEELE, have received the above patient education materials/instructions and have verbalized understanding. If ambulance or transport services are being used I further acknowledge being given a choice of service. ?? If you need to contact me, please call me at this number: . Patient/Java Programmer Analyst Name: Patient/Java Programmer Analyst Signature: Relationship to Patient: Witness Name/Signature: Date: Patient Care team information Care Team Personnel Name: Johnathan Claudio TYPING CHECKER, Bernie Green Position: [facility] Associate Professional Member Role: PCP Address: Address: [address] [place] [id number] Name: Alexis Batista RN Position: S RN Member Role: Primary Care Nurse Name: Lety Brown RN Position: S RN Member Role: Primary Care Nurse Name: Nathan Sims RN Position: S RN Member Role: Primary Care Nurse Care Team Related Persons Name: TSERING MOE Name: CHAPINCITO STEELE
--- OUTSIDE RECORDS SUMMARY | 2024-01-06 14:39 | XMS_ITS | Continuity of Care Document ---
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 Name Role Phone Not on Staff, PCP Primary Care Physician Unavail able [place] [facility] [place] - 06/12/[address] [address]- Encounter Diagnosis Anaphylaxis(Final) - 06/12/22 Discharge Disposition: A-D/C Home Attending Physician: Jennifer Baxter MD Admitting Physician: Jennifer Baxter MD Referring Physician: Not on Staff, Referring MD Allergies, Adverse Reactions, Alerts No Known Allergies Immunizations Given and Recorded Vaccine Date Status Refusal Reason tetanus/diphtheria/pertussis, acel(Tdap) 06/11/16 Given Medications EpiPen 2-Jay 0.3 mg injectable kit = 0.3 mg, Intramuscular, Once, # 1 each, 0 Refills, Soft Stop, 06/12/22 20:11:00 EDT, [facility]/pharmacy #[id number], Partial fill upon patient request if the prescription is for a schedule II opioid drug., 173,cm, 06/12/22 15:03:00 EDT, Height, 82, kg, 06/12/22... Start Date: 06/12/22 Status: Ordered folic acid 1 mg oral tablet 1 mg, 1, tablet, By Mouth, Daily, # 30 tablet, Refills 0, Tot. Refills 0, Maintenance, 05/19/22 9:47:00 EDT, Route to Pharmacy Electronically, [facility]/pharmacy #[id number], Partial fill upon patient request ifthe prescription is for a schedule II opioid drug.,... Start Date: 05/19/22 Stop Date: 06/18/22 Status: Ordered multivitamin Therapeutic Multiple Vitamins oral tablet 1 tablet, By Mouth, Daily, # 30 tablet, 0 Refills, Maintenance, 05/19/22 9:48:00 EDT, Tablet, [facility]/pharmacy #[id number], Partial fill upon patient request if the prescription is for a schedule II opioid drug., 1 tablet By Mouth Daily,x30 days, 173, cm, 04/19... Start Date: 05/19/22 Stop Date: 06/18/22 Status: Ordered Outpatient physical therapy Outpatient physical therapy, See Instructions, # 14 each, Refills 0, Tot. Refills 0, Maintenance, For walking difficulty, 04/19/22 10:01:00 EDT, Supply Start Date: 04/19/22 Status: Ordered pyridoxine 50 mg oral tablet 50 mg, 1, tablet, By Mouth, Daily, for 30 days, # 30 tablet, Refills 0, Tot. Refills 0, Acute 06/18/22 9:49:00 EDT, 05/19/22 9:49:00 EDT, Route to Pharmacy Electronically, [facility]/pharmacy #[id number], Partialfill upon patient request if the prescription is fo... Start Date: 05/19/22 Stop Date: 06/18/22 Status: Ordered ROLLING WALKER ROLLING WALKER, See Instructions, # 1 each, Refills 0, Tot. Refills 0, Maintenance, For walking difficulties, 04/19/22 9:56:00 EDT, Supply Start Date: 04/19/22 Status: Ordered thiamine 100 mg oral tablet 100 mg, 1, tablet, By Mouth, 2 times a day, for 30 days, # 60 tablet, Refills 0, Tot. Refills 0, Acute 06/18/22 9:49:00 EDT, 05/19/22 9:49:00 EDT, Route to Pharmacy Electronically, [facility]/pharmacy #[id number], Partial fill upon patient request if the prescript... Start Date: 05/19/22 Stop Date: 06/18/22 Status: Ordered Problem List Condition Confirmation Course Effective Dates Status Health [facility]us Informant COVID-19 1 Confirmed 04/19/22 Active 1Problem added by Discern Expert Vital Signs Most recent to oldest [Reference Range]: 1 2 3 Height 173 cm (06/12/22 3:03 PM) 173 cm (06/12/22 2:50 PM) Weight 82 kg (06/12/22 3:03 PM) 82 kg (06/12/22 2:50 PM) Oxygen Saturation [94-100 %] 94 % (06/12/22 7:53 PM) 95 % (06/12/22 6:50 PM) 98 % (06/12/22 4:54 PM) Pulse Rate [55-90 bpm] 88 bpm (06/12/22 7:53 PM) 81 bpm (06/12/22 6:50 PM) 88 bpm (06/12/22 4:54 PM) Body Mass Index [18.5-24.99 kg/m2] 27.4 kg/m2 *H* (06/12/22 2:50 PM) Blood Pressure [90-138/55-84 mm Hg] 115/67mm Hg (06/12/22 7:53 PM) 119/68mm Hg (06/12/22 6:50 PM) 112/79mm Hg (06/12/22 4:54 PM) Respiratory Rate [16-30 br/min] 17 br/min (06/12/22 7:53 PM) 19 br/min (06/12/22 6:50 PM) 19 br/min (06/12/22 4:54 PM) Temperature [96.8-100.4 DegF] 97.7 DegF (06/12/22 7:53 PM) 97.6 DegF (06/12/22 2:50 PM) Liters per Minute 3 L/min (06/12/22 4:54 PM) 0 L/min (06/12/22 2:25 PM) Mode of Delivery (Oxygen) Room air (06/12/22 7:53 PM) Room air (06/12/22 6:50 PM) Nasal cannula (06/12/22 4:54 PM) Blood pressure sites Arm, right (06/12/22 7:53 PM) Arm, right (06/12/22 6:50 PM) Arm, left (06/12/22 4:54 PM) Temperature Route Oral (06/12/22 7:53 PM) Oral (06/12/22 2:50 PM) Dry Weight 82 kg (06/12/22 3:03 PM) 82 kg (06/12/22 2:50 PM) Weight Obtained Via Patient/family stated (06/12/22 2:50 PM) Dry Weight Obtained Via Patient/family stated (06/12/22 2:50 PM) Social History Social History Type Response Smoking Status Never (less than 100 in lifetime) entered on: 04/15/22 Sex Patient Care team information Personnel Name: Not on Staff, PCP
== END 2024-01-06 16:23 | disposition home or self-care (01) ==
LOC: HO.HUSH 14:38
PROVIDERS: PCP Nurse Practitioner Family; Visit Provider Nurse Practitioner Family
DX: D69.6 Thrombocytopenia, unspecified (principal); R10.9 Unspecified abdominal pain; N20.0 Calculus of kidney
CPT/HCPCS: 99214

== ENCOUNTER → 2024-01-06 14:37 | Outpatient (BNVA) | payer OTHER, SELFPAY | PROVIDERS: PCP Nurse Practitioner Family; Visit Provider Nurse Practitioner Family ==